=== PATIENT | male | born 1970 | race Two or more races ===

== ENCOUNTER 2025-01-25 13:13 | Inpatient (IN) | payer MEDICAID ==
[~2025-01-25] VITALS: Ht 167.6 cm; Wt 112.0 kg
[~2025-01-25 13:13] MED LIST: ACET-6 PO; ALBUAER3 IN; ASCO500T11 PO; ASPI1TAB20 PO; ATOR20TA50 PO; CICL8SOL21 TOP; CLOP75TA70 PO; CLOT1CRE7 TOP; DOCU-94 PO; EMPA1TAB PO; FAMO-12 PO; FENO145T27 PO; FERR324T PO; FLUT50SP NAS; GAB100C PO; GEMF-66 PO; INSU1INJ27; ISO20T PO; KETO2CRE4 TOP; LISI20TA56 PO; MET25T PO; METF750T54 PO; METR0.7517 TOP; MIN25T PO; NITR0.4S29 SL; ONDA-155 PO; PERCOT PO; POLY33505 PO; PROB1CAP PO; TRAZ-228 PO; URSO300C2 PO
--- NOTE | 2025-01-25 13:31 | ED.PDOC ---
HPI Comments HPI: Poor Historian. 54-year-old male brought in by ambulance from home for evaluation of midsternal chest pressure tightness radiating to the left shoulder has been there for a week intermittent with the associated shortness of breath. Patient called 911 today and took his own full-dose aspirin as well. Per EMS pain scale was 8/10 vital signs were stable. Patient had some nausea with the symptoms. Past Medical History: Obesity, hypertension, hyperlipidemia, diabetes, anxiety, depression Past Surgical History: CABG REVIEW OF SYSTEMS: CONSTITUTIONAL: Denies acute: fever, diaphoresis, chills, HEAD: Denies acute: headache, photophobia Eyes: Denies acute: Double vision, vision loss, eye pain, eye discharge. EARS: Denies acute: tinnitus, hearing loss, ear discharge, ear pain, THROAT: Denies acute: sore throat, swelling, difficulty swallowing , pain with swallowing, change in voice. NECK: Denies acute: neck pain, neck swelling, stiff neck. HEART: Denies acute : palpitations, LUNGS: Denies acute: wheezing, cough, hemoptysis ABDOMEN: Denies acute: abdominal pain, Vomiting, diarrhea, melena , hematemesis, hematochezia SKIN: Denies acute: rash, redness, lesions, itchiness. EXTREMITIES: Denies acute: calf pain, numbness, tingling, weakness, denies pain in extremity. Denies acute: Low back pain. Neuro: Denies acute: focal neurological deficit, motor or sensory focal neurological deficit, tremors, seizure like activity, confusion, dizziness, change in mental status, loss of bowel or bladder function, cauda equina like symptoms. : Denies acute: dysuria, hematuria, flank pain, increase in urinary frequency. PSYCH: Denies acute: hallucination, suicidal ideation, homicidal ideation. PHYSICAL EXAM: General: ----[id number]----acute distress, awake and alert. Head: normocephalic, atraumatic. Neck: supple, trachea is midline, no swelling. Throat: Normal phonation. Eyes:, no erythema, no purulent discharge, no proptosis, no icterus. Heart: regular rate, regular rhythm, no significant murmur appreciated. Lungs: no apparent respiratory distress, Able to speak in full sentences. No wheezing, no rhonchi, no crackles. No stridors Clear to auscultation bilaterally. Abdomen: non tender to palpation, non distended, soft, no guarding, no rebound, + bowel sounds. Neuro: Awake, Alert, oriented to name, self, situation, follows commands GCS=15. Speech is normal. Skin: no petechia, no purpura, no cyanosis, non-pale, not jaundice. Lower extremities: --no - Pitting edema no deformity, no focal swelling, no calf TTP. Makes eye contact. moves all four extremities. Face: no apparent facial droop. ED COURSE: DISCLAIMER: This medical document was created using an electronic medical record system with voice recognition software and computerized dictation system. Although this document has been carefully reviewed, there might still be some phonetic and typographical errors. Occasional wrong-word or "sound-alike" substitutions may have occurred due to the inherent limitations of voice recognition software. These areas are purely typographical due to imperfections of the software programs and do not reflect any compromise in the patient's medical care. Please read the chart carefully and recognize, using context, where these substitutions have occurred. Chief Complaint: Chest Pain Time Seen by MD: 13:19 Primary Care Provider: KELSI Reviewed Notes: Allergies Allergies: Coded Allergies: Shrimp Flavor Agent (non-screening) (Verified Allergy, Mild, 11/01/24) "Itchy" Peanut-containing Drug Products (Verified Allergy, Unknown, 11/01/24) "walnuts" Home Meds Reported Medications Ranolazine (Ranolazine ER) 500 Mg Tab, 500 MG PO BID, TAB 01/26/25 Roflumilast (Antiseborrheic) (Zoryve) 0.3 % Mis, 0.3 % EX DAILY, MISC 01/25/25 Escitalopram Oxalate (ESCITALOPRAM OXALATE) 10 Mg Tab, PO 01/25/25 Ascorbic Acid (Gnp Vitamin C W/Amelia Hips) 500 Mg Tab, 1 TAB PO DAILY 01/25/25 Minoxidil (Loniten) 2.5 Mg Tb, 0.5 TAB PO DAILY, TAB 10/31/24 Albuterol Sulfate (VENTOLIN MDI) 90 Mcg Ih, 2 PUFF IN Q6HPRN PRN for wheezing, INH 10/31/24 Aspirin (Aspir-81) 81 Mg Tab, 81 MG PO DAILY, TAB 10/31/24 Lisinopril (Lisinopril) 20 Mg Tab, 10 MG PO DAILY, TAB 10/31/24 Ondansetron HCl (Ondansetron) 4 Mg Tab, 4 MG PO Q8HPRN PRN for NAUSEA / VOMITING, TAB 10/31/24 Oxycodone W/ Acetaminophen (Percocet 5/325MG) 1 Tab Tb, 1 TAB PO PRN for PAIN SCALE 7 THRU 10, TAB 10/31/24 Bacillus Coagulans (Bacid) 1 Cap Cap, 1 CAP PO DAILY, CAP 10/31/24 Ferrous Gluconate (Ferrous Gluconate) 324 Mg Tab, 325 MG PO DAILY, TAB 10/31/24 Metoprolol Tartrate (Lopressor) 25 Mg Tb, 1 TAB PO BID 10/31/24 Clotrimazole (Topical) (Clotrimazole Anti-Fungal) 1 % Cre, 1 APPLIC TOP BID 10/31/24 Ketoconazole (Ketoconazole) 2 % Cre, 1 APPLIC TOP DAILY 10/31/24 Ciclopirox (Ciclopirox Nail Lacquer) 8 % Mickie, TOP Apply 1 application topically every evening at bedtime. Apply on nail and surrounding skin. After 7 days remove with alcohol and continue cycle. 10/31/24 Isosorbide Mononitrate (ISMO TABLET) 20 Mg Tb, 1 TAB PO BID 10/31/24 Gemfibrozil (Gemfibrozil) 600 Mg Tab, 1 TAB PO BID 10/31/24 Ursodiol (Ursodiol) 300 Mg Cap, 1 CAP PO BID 10/31/24 Famotidine (Famotidine) 20 Mg Tab, 1 TAB PO BID 10/31/24 Metronidazole (Topical) (Metronidazole) 0.75 % Gel, 1 APPLIC TOP BID 10/31/24 Acetaminophen (Acetaminophen Extra Stren) 500 Mg Tab, 1 TAB PO Q6HPRN PRN for PAIN1-3 10/31/24 Metformin Hydrochloride (Metformin Hcl Er) 750 Mg Tab, 1 TAB PO TID 10/31/24 Empagliflozin (Jardiance) 10 Mg Tab, 1 TAB PO DAILY 10/31/24 Nitroglycerin (NTROSTAT SUBLINGUAL) 0.4 Mg Sl, 0.4 MG SL PRN PRN for FOR CHEST PAIN, TAB *MAY REPEAT EVERY 5 MINUTES X 3 TOTAL IF NO RELIEF, INITIATE ANALGESIC THERAPY. NOTIFY PHYSICIAN *Do not crush. 10/31/24 Fluticasone Propionate (Nasal) (Fluticasone Propionate) 50 Mcg/Act Spr, SPRAY PORSHA 10/31/24 Fenofibrate (FENOFIBRATE) 145 Mg Tab, 1 TAB PO DAILY 10/31/24 Clopidogrel Bisulfate (CLOPIDOGREL) 75 Mg Tab, 1 TAB PO DAILY 10/31/24 Atorvastatin Calcium (ATORVASTATIN CALCIUM) 20 Mg Tab, 1 TAB PO DAILY 10/31/24 Gabapentin (Gabapentin) 100 Mg Cap, 1 CAP PO TID 10/31/24 Insulin Aspart Protamine & Asp (Insulin Aspart Protamine/ (70-30) 100 Unit/ml) 1 Inj Inj 36 UNITS SC IN THE MORNING AND 15 UNITS SC AT NIGHT. 10/31/24 Past Medical History PAST MEDICAL HISTORY: DM, HTN Family History Family History: Reviewed,noncontributory to illness, Unknown Social History Smoker: Non-Smoker Alcohol: Denies ETOH Use Drugs: Denies Drug Use Lives In: Home Was a procedure done? Was a procedure done?: No CP Differential Dx Differential Diagnosis: N/A Differential Diagnosis: Other (Ddx include but not limitied to gastritis, musculoskeletal pain, radiculopathy, atypical chest pain, dissection, aneurysm, ACS, unstable angina, hiatal hernia, GERD, anxiety, costochondritis, PE, pneumothroax, neoplasm, cardiac ischemia, drug abuse, anemia.) X-Ray, Labs, Meds, VS Vital Signs Date Time Temp Pulse Resp B/P (MAP) Pulse Ox O2 Delivery O2 Flow Rate FiO2 01/25/25 14:13 77 01/25/25 13:51 101/67 01/25/25 13:45 Room Air* 0 21 01/25/25 13:45 97.7 81 20 101/67 (78) 98 97.7 01/25/25 13:23 98.2 80 16 112/73 (86) 98 98.2 01/25/25 13:21 83 Lab Test 01/25/25 15:03 01/25/25 13:59 01/25/25 13:47 01/25/25 00:00 Range/Units Hemoglobin A1c 7.4 H <5.7 % A1C Troponin I High Sensitivity < 3 L < 3 L </=54 ng/L Thyroid Stimulating Hormone (TSH) 1.50 0.55-4.78 uIU/mL Free Thyroxine (T4) Calculated 0.99 0.89-1.76 ng/dL POC Glucose 180 H 70-106 mg/dl White Blood Count 4.5 4.4-10.8 10^3/uL Red Blood Count 4.75 4.5-5.90 10^6/uL Hemoglobin 14.9 13.5-17.5 g/dL Hematocrit 45.4 41.0-53.0 % Mean Corpuscular Volume 95.5 80.0-100.0 fL Mean Corpuscular Hemoglobin 31.4 28.0-32.0 pg Mean Corpuscular Hemoglobin Concent 32.8 32.0-36.0 g/dL Red Cell Distribution Width 14.9 H 11.8-14.3 % Platelet Count 232 140-450 10^3/uL Mean Platelet Volume 8.3 6.9-10.8 fL Neutrophils (%) (Auto) 49.5 37.0-80.0 % Lymphocytes (%) (Auto) 39.3 10.0-50.0 % Monocytes (%) (Auto) 7.5 0.0-12.0 % Eosinophils (%) (Auto) 2.7 0.0-7.0 % Basophils (%) (Auto) 1.0 0.0-2.0 % Neutrophils # (Auto) 2.2 1.6-8.6 10 ^3/uL Lymphocytes # (Auto) 1.8 0.4-5.4 10 ^3/uL Monocytes # (Auto) 0.3 0-1.3 10 ^3/uL Eosinophils # (Auto) 0.1 0-0.8 10 ^3/uL Basophils # (Auto) 0 0-0.2 10 ^3/uL Nucleated Red Blood Cells 0.1 % Sodium Level 139 136-145 mmol/L Potassium Level 4.3 3.5-5.1 mmol/L Chloride Level 105 98-107 mmol/L Carbon Dioxide Level 23 20-31 mmol/L Anion Gap 11 5-15 Blood Urea Nitrogen 25 H 9-23 mg/dL Creatinine 1.31 H 0.700-1.30 mg/dL Glomerular Filtration Rate Calc 64 >90 mL/min BUN/Creatinine Ratio 19.1 10.0-20.0 Serum Glucose 169 H 74-106 mg/dL Calcium Level 10.4 8.7-10.4 mg/dL Total Bilirubin 0.3 0.2-1.0 mg/dL Aspartate Amino Transferase (AST) 76 H 13-40 U/L Alanine Aminotransferase (ALT) 64 H 7-40 U/L Alkaline Phosphatase 43 L 46-116 U/L B-Type Natriuretic Peptide 8.62 0-100 pg/mL Total Protein 7.5 5.7-8.2 g/dL Albumin 4.8 3.2-4.8 g/dL Urine Color Light-yellow Yellow Urine Clarity Clear Clear Urine pH 5.5 5.0-9.0 Urine Specific Tate 1.024 1.001-1.035 Urine Protein Negative Negative Urine Ketones Negative Negative Urine Blood Negative Negative /uL Urine Nitrite Negative Negative Urine Bilirubin Negative Negative Urine Urobilinogen Normal Negative mg/dL Urine Leukocyte Esterase Negative Negative /uL Urine RBC 3 0 - 3 /hpf Urine Microscopic WBC < 1 0-3 /HPF Urine Squamous Epithelial Cells Few <5 /hpf Urine Bacteria None seen None Seen /hpf Urine Glucose 4+ H Normal mg/dL Urine Opiates Screen Neg NEGATIVE Urine Fentanyl Screen Neg NEGATIVE Urine Barbiturates Screen Neg NEGATIVE Urine Phencyclidine Screen Neg NEGATIVE Urine Amphetamines Screen Neg NEGATIVE Urine Benzodiazepines Screen Neg NEGATIVE Urine Cocaine Screen Neg NEGATIVE Urine Cannabinoids Screen Neg NEGATIVE [place] [address] Ph: [phone] DIAGNOSTIC IMAGING Diagnostic Imaging Report : [id number] Signed PATIENT: SILVANA MENDOZA ACCT: [id number] UNIT: [id number] : 1970 LOC: ER ROOM / BED: / AGE / SEX: 54 / M ADM STATUS: REG ER SERVICE 1323 ORDERING PHYSICIAN: FABY PAINTING DO PROCEDURE(s): CXRP - CHEST PORTABLE REASON: cp/sob ORDER NUMBER(s): [id number], ACCESSION NUMBER(s): [id number] CHEST RADIOGRAPH Indication: cp/sob Technique: Single frontal view of the chest was obtained COMPARISON: XY CHEST XRAY 1 VIEW on DOS: 11/02/24, XY CHEST PORTABLE on DOS: 10/31/24 FINDINGS: Lines and Tubes: Median sternotomy Lungs: Increased interstitial prominence Pleura: No effusion. No pneumothorax. Cardiomediastinal contours: Cardiomegaly Bones: Unremarkable IMPRESSION: Mild pulmonary vascular congestion or viral pneumonia. ATED BY: OSWALDO TYSON MD DICTATED DATE/TIME: 01/25/251417 SIGNED BY: OSWALDO TYSON MD SIGNED DATE/TIME: 01/25/251417 CC: Time of 1ST Reevaluation: 00:00 Reevaluation 1ST: N/A Patient Education/Counseling: Diagnosis, Treatment Family Education/Counseling: Other Comments MDM: patient presented with the above HPI.-cardiac-----workup was initiated. patient was found with the above mentioned diagnosis. the following medications were ordered: please refer to order lists of meds and tests obtained by myself Dr. Painting. Patient ED course and VS have been stabilized. Patient has been reassessed in the ED and remained in a stable condition. Pertinent incidental findings were discussed with the patient and/or family. Patient/family voices understanding and is agreeable with plan. Patient has been observed in the ED adequate length of time to insure improvement/stability. Escalation of care considered: Consideration of escalation to observation or admission Patient was given aspirin and nitroglycerin sublingually Patient was ADMITTED to the medicine team for further evaluation and treatment of their presentation. All the reports of any imaging studies that were ordered by myself were reviewed by myself. SEPSIS Sepsis Screen Physician Orders [employer] (01/25/25 ) Chest Portable (01/25/25 13:23) Electrocardigram (01/25/25 13:23) Electrocardigram (01/25/25 14:23) Electrocardigram (01/25/25 16:23) Vital Signs Date Time Temp Pulse Resp B/P (MAP) Pulse Ox O2 Delivery O2 Flow Rate FiO2 01/25/25 14:13 77 01/25/25 13:51 101/67 01/25/25 13:45 Room Air* 0 21 01/25/25 13:45 97.7 81 20 101/67 (78) 98 97.7 01/25/25 13:23 98.2 80 16 112/73 (86) 98 98.2 01/25/25 13:21 83 Laboratory Tests Test 01/25/25 13:47 White Blood Count 4.5 10^3/uL (4.4-10.8) Departure 1 Departure Time of Disposition: 13:31 Impression: Primary Impression: Chest pain Additional Impression: Dyspnea Disposition: ADMITTED INPATIENT Admit to: Tele Condition: Guarded Discharged With: Self Critical Care Note Critical Care Time?: No Heart Score Heart Score: Heart Score Response (Comments) Value History Moderate Suspicious 1 EKG Normal 0 Age 45-64 1 Risk Factors >3 or Hx ASHD 2 Troponin Normal limit 0 Total 4 I personally scribed for FABY PAINTING DO ([email or web address]) on 01/25/25 at 16:57. Electronically submitted by Tobin Ferrell ([email or web address]). I personally scribed for FABY PAINTING DO ([email or web address]) on 01/25/25 at 18:19. Electronically submitted by Nicole Hong ([email or web address]). FABY PAINTING DO Jan 25, 2025 13:31
[2025-01-25] MEDS: SODIUM CHLORIDE 0.9% 500 ML IV ONE (13:50)
[2025-01-25] MEDS: NITROGLYCERIN 0.4 MG SL TAB SL ONE (13:51)
[2025-01-25 14:16] LABS: Hematocrit 45.4 % (41.0-53.0); Hemoglobin 14.9 g/dL (13.5-17.5); Mean Corpuscular Hemoglobin 31.4 pg (28.0-32.0); Mean Corpuscular Volume 95.5 fL (80.0-100.0); Nucleated Red Blood Cells % 0.1 %
--- NOTE | 2025-01-25 14:21 | DVH ---
CHEST RADIOGRAPH Indication: cp/sob Technique: Single frontal view of the chest was obtained COMPARISON: XY CHEST XRAY 1 VIEW on DOS: 11/02/24, XY CHEST PORTABLE on DOS: 10/31/24 FINDINGS: Lines and Tubes: Median sternotomy Lungs: Increased interstitial prominence Pleura: No effusion. No pneumothorax. Cardiomediastinal contours: Cardiomegaly Bones: Unremarkable IMPRESSION: Mild pulmonary vascular congestion or viral pneumonia.
[2025-01-25 14:28] LABS: Albumin 4.8 g/dL (3.2-4.8); Anion Gap 11 (5-15); BUN/Creatinine Ratio 19.1 (10.0-20.0); Carbon Dioxide 23 mmol/L (20-31); Chloride 105 mmol/L (98-107); Potassium 4.3 mmol/L (3.5-5.1); Sodium 139 mmol/L (136-145); Total Protein 7.5 g/dL (5.7-8.2)
[2025-01-25 14:29] LABS: Alanine Aminotransferase 64 U/L (7-40); Alkaline Phosphatase 43 U/L (46-116); Bilirubin, Total 0.3 mg/dL (0.2-1.0); Blood Urea Nitrogen 25 mg/dL (9-23); Calcium 10.4 mg/dL (8.7-10.4); Glucose 169 mg/dL (74-106)
[2025-01-25] MEDS ORDERED: ASCO500T6 PO (15:56)
[2025-01-25] MEDS ORDERED: ESCI1TAB36 PO (15:56)
[2025-01-25 16:00] LABS: Urine Protein, UAD Negative (Negative)
[2025-01-25] MEDS ORDERED: DEXTROSE (50%) 50ML SYRG IV PRN (16:00)
[2025-01-25] MEDS ORDERED: MORPHINE SULFATE 4 MG/ML SYR/VIAL IV PRN (16:00)
[2025-01-25] MEDS ORDERED: NITROGLYCERIN 0.4 MG SL TAB SL PRN ×2 (16:00)
--- NOTE | 2025-01-25 16:14 | DVHHP2 ---
History of Present Illness Reason for Visit: Chest pain radiating to left shoulder and shortness of breath History of Present Illness Thomas Reza is a 54-year-old male with past medical history of hypertension, hyperlipidemia, diabetes, anxiety, obesity, depression, and CABG who presents to the ED with chest pain and tightness that radiates to his left shoulder with shortness of breath x 3 days. Patient reports that the pain is 9/10 stabbing like and intermittent in nature. He states that there are no triggering or alleviating factors. Patient reports that he was packing his belongings at the time and resides at a board and care. He also reports that he ambulates with a front wheel walker. Patient denies any recent sick contacts, recent trauma or injury, recent travels, recent ingestion of spoiled food, lightheadedness, dizziness, weakness, urinary symptoms, abdominal pain, nausea, vomiting, diarrhea, fever, or chills. Cardiovascular: HTN, hyperipidemia Psych: Anxiety, Depression Endocrine: Diabetes Past Medical History Obesity Past Surgical History: CABG Family History: None Smoke: No ALCOHOL: none Drugs: None Lives: Other Domestic Violence: Neg Review of Systems Respiratory: Shortness of breath Cardiovascular: Chest Pain Musculoskeletal: shoulder pain Allergies: Coded Allergies: Shrimp Flavor (Verified Allergy, Mild, 11/01/24) "Itchy" Peanut-containing Drug Products (Verified Allergy, Unknown, 11/01/24) "walnuts" Medications Current Medications Medications Dose Ordered Sig/Carlos Route Start Time Stop Time Status Last Admin Dose Admin Aspirin 81 mg DAILY PO 01/26/25 10:00 UNV Atorvastatin Calcium 40 mg HS PO 01/25/25 22:00 UNV Morphine Sulfate 2 mg Q30MP PRN IV 01/25/25 16:00 UNV Acetaminophen 650 mg Q6HP PRN PO 01/25/25 16:00 UNV Nitroglycerin 0.4 mg Q5MINP PRN SL 01/25/25 16:00 UNV Ondansetron HCl 4 mg Q4HP PRN IV 01/25/25 16:00 UNV Nitroglycerin 0.4 mg Q5MINP PRN SL 01/25/25 16:00 UNV Morphine Sulfate 2 mg Q30M PRN IV 01/25/25 16:00 UNV Diagnostic Test (Pha) 1 strip ACHS 01/25/25 17:00 UNV Insulin Human Regular ACHS SC 01/25/25 17:00 UNV Dextrose 50 ml UD PRN IV 01/25/25 16:00 UNV Ascorbic Acid 500 mg DAILY PO 01/26/25 10:00 UNV Clopidogrel Bisulfate 75 mg DAILY PO 01/26/25 10:00 UNV Famotidine 20 mg BID PO 01/25/25 22:00 UNV Gabapentin 100 mg TID PO 01/25/25 22:00 UNV Gemfibrozil 600 mg BID PO 01/25/25 22:00 UNV Isosorbide Mononitrate 20 mg BID PO 01/25/25 22:00 UNV Lisinopril 10 mg DAILY PO 01/26/25 10:00 UNV Metoprolol Tartrate 25 mg BID PO 01/25/25 22:00 UNV Minoxidil 1.25 mg DAILY PO 01/26/25 10:00 UNV Ursodiol 300 mg BID PO 01/25/25 22:00 UNV Patient Own Medication 1 cap DAILY PO 01/26/25 10:00 UNV Patient Own Medication 1 tab DAILY PO 01/26/25 10:00 UNV Patient Own Medication 325 mg DAILY PO 01/26/25 10:00 UNV Patient Own Medication 17 gm DAILY PO 01/26/25 10:00 UNV Patient Own Medication 50 mg HS PO 01/25/25 22:00 UNV Exam Vital Signs Vital Signs Date Time Temp Pulse Resp B/P (MAP) Pulse Ox O2 Delivery O2 Flow Rate FiO2 01/25/25 14:13 77 01/25/25 13:51 101/67 01/25/25 13:45 Room Air* 0 21 01/25/25 13:45 97.7 20 98 97.7 General Appearance: Alert, Oriented X3, Cooperative, No acute distress HEENT: Atraumatic, PERRLA, EOMI, Mucous membr. moist/pink Respiratory: Normal air movement Cardiovascular: Regular rate, Normal S1, Normal S2, No murmurs Abdominal: Normal bowel sounds, Soft Extremities: No clubbing, No cyanosis, Normal pulses Skin: No significant lesion Neuro: Normal speech, Strength at 5/5 X4 ext, Normal tone, Sensation intact Psych/Mental Status: Mental status NL, Mood NL Labs/Xrays Labs Test 01/25/25 15:03 01/25/25 13:59 01/25/25 13:47 01/25/25 00:00 Range/Units Troponin I High Sensitivity < 3 L </=54 ng/L POC Glucose 180 H 70-106 mg/dl White Blood Count 4.5 4.4-10.8 10^3/uL Red Blood Count 4.75 4.5-5.90 10^6/uL Hemoglobin 14.9 13.5-17.5 g/dL Hematocrit 45.4 41.0-53.0 % Mean Corpuscular Volume 95.5 80.0-100.0 fL Mean Corpuscular Hemoglobin 31.4 28.0-32.0 pg Mean Corpuscular Hemoglobin Concent 32.8 32.0-36.0 g/dL Red Cell Distribution Width 14.9 H 11.8-14.3 % Platelet Count 232 140-450 10^3/uL Mean Platelet Volume 8.3 6.9-10.8 fL Neutrophils (%) (Auto) 49.5 37.0-80.0 % Lymphocytes (%) (Auto) 39.3 10.0-50.0 % Monocytes (%) (Auto) 7.5 0.0-12.0 % Eosinophils (%) (Auto) 2.7 0.0-7.0 % Basophils (%) (Auto) 1.0 0.0-2.0 % Neutrophils # (Auto) 2.2 1.6-8.6 10 ^3/uL Lymphocytes # (Auto) 1.8 0.4-5.4 10 ^3/uL Monocytes # (Auto) 0.3 0-1.3 10 ^3/uL Eosinophils # (Auto) 0.1 0-0.8 10 ^3/uL Basophils # (Auto) 0 0-0.2 10 ^3/uL Nucleated Red Blood Cells 0.1 % Sodium Level 139 136-145 mmol/L Potassium Level 4.3 3.5-5.1 mmol/L Chloride Level 105 98-107 mmol/L Carbon Dioxide Level 23 20-31 mmol/L Anion Gap 11 5-15 Blood Urea Nitrogen 25 H 9-23 mg/dL Creatinine 1.31 H 0.700-1.30 mg/dL Glomerular Filtration Rate Calc 64 >90 mL/min BUN/Creatinine Ratio 19.1 10.0-20.0 Serum Glucose 169 H 74-106 mg/dL Calcium Level 10.4 8.7-10.4 mg/dL Total Bilirubin 0.3 0.2-1.0 mg/dL Aspartate Amino Transferase (AST) 76 H 13-40 U/L Alanine Aminotransferase (ALT) 64 H 7-40 U/L Alkaline Phosphatase 43 L 46-116 U/L B-Type Natriuretic Peptide 8.62 0-100 pg/mL Total Protein 7.5 5.7-8.2 g/dL Albumin 4.8 3.2-4.8 g/dL CHEST RADIOGRAPH Indication: cp/sob Technique: Single frontal view of the chest was obtained COMPARISON: XY CHEST XRAY 1 VIEW on DOS: 11/02/24, XY CHEST PORTABLE on DOS: 10/31/24 FINDINGS: Lines and Tubes: Median sternotomy Lungs: Increased interstitial prominence Pleura: No effusion. No pneumothorax. Cardiomediastinal contours: Cardiomegaly Bones: Unremarkable IMPRESSION: Mild pulmonary vascular congestion or viral pneumonia. SEPSIS Sepsis Screen Date sepsis recognized/suspect: Jan 25, 2025 Time Sepsis recognized/suspect: 1322 Recent Procedure: No On Antibiotic Therapy: No Respiratory Rate >20: No Heart Rate >90: No Temp<36 C (96.8 F) or >38.3 C: No SBP <90 or MAP <65 mmHG: No New Acute Mental Status Change: No Is the patient on CPAP, BIPAP,: No Physician Orders Assistant Business Manager (01/25/25 ) Chest Portable (01/25/25 13:23) Electrocardigram (01/25/25 13:23) Troponin-I Hs (01/25/25 16:23) Electrocardigram (01/25/25 14:23) Electrocardigram (01/25/25 16:23) Urinalysis (01/25/25 UNK) Admit (01/25/25 15:50) Code Status (01/25/25 15:50) Vital Signs .PER UNIT PROTOCOL (01/25/25 15:50) Assistant Business Manager (01/25/25 15:50) Cardiac Diet-2gna,Lofat,Lochol (01/25/25 Dinner) Aspirin Tablet (01/26/25 10:00) Atorvastatin (Lipitor) (01/25/25 22:00) Morphine Sulfate Injection (01/25/25 16:00) Acetaminophen Tablet (Tylenol Tablet) (01/25/25 16:00) Complete Blood Count (01/26/25 04:00) Basic Metabolic Panel (01/26/25 04:00) Magnesium (01/26/25 04:00) Lipid Panel (01/26/25 04:00) Echo 2d Mode Cardiac Dop (01/25/25 15:50) Nitroglycerin Sublingual (Ntrostat Subli (01/25/25 16:00) Ondansetron Hcl (Zofran) (01/25/25 16:00) Electrocardigram (01/26/25 04:00) Cardiac Rehabilitation - Outpa (01/25/25 ) Nitroglycerin Sublingual (Ntrostat Subli (01/25/25 16:00) Morphine Sulfate Injection (01/25/25 16:00) Stat Ekg For Chest Pain (01/25/25 15:50) Notify Md Of Changes From Base (01/25/25 15:50) Ancillary Services Manager Therapy For 24 Hours (01/25/25 15:50) Emergency Dysrhythmia Protocol (01/25/25 15:50) Rhythm Strips Once Every Shift (01/25/25 15:50) Oxygen By Nasal Cannula (01/25/25 15:50) Glucose Blood (Accu-Chek Comfort Curve T (01/25/25 17:00) Insulin R (Human) (Insulin R) (01/25/25 17:00) Dextrose 50% Syringe (01/25/25 16:00) Hemoglobin A1c (01/25/25 15:50) Drug Screen (01/25/25 15:53) Free T4 (Free Thyroxine) (01/25/25 15:53) Thyroid Stimulating Hormone (01/25/25 15:53) Ascorbic Acid Tablet (Vitamin C Tablet) (01/26/25 10:00) Clopidogrel Bisulfate (Plavix) (01/26/25 10:00) Famotidine Tablet (Pepcid Tablet) (01/25/25 22:00) Gabapentin Capsule (Neurontin Capsule) (01/25/25 22:00) Gemfibrozil Tablet (Lopid Tablet) (01/25/25 22:00) Isosorbide Mononitrate Tablet (Ismo Tab (01/25/25 22:00) Lisinopril Tablet (Zestril Tablet) (01/26/25 10:00) Metoprolol Tartrate Tablet (Lopressor Ta (01/25/25 22:00) Minoxidil Tablet (Loniten Tablet) (01/26/25 10:00) Ursodiol (Actigall) (01/25/25 22:00) (Nf) Bacillus Coagulans (Bacid) (01/26/25 10:00) (Nf) Fenofibrate (01/26/25 10:00) (Nf) Ferrous Gluconate (01/26/25 10:00) (Nf) Polyethylene Glycol (Miralax) (01/26/25 10:00) (Nf) Trazodone Hcl (01/25/25 22:00) * Ocean Rescue Lieutenant Consult (01/25/25 ) Albuterol Medneb (Ventolin Medneb) (01/25/25 16:15) Ipratropium Medneb (Atrovent Medneb) (01/25/25 16:15) Vital Signs Date Time Temp Pulse Resp B/P (MAP) Pulse Ox O2 Delivery O2 Flow Rate FiO2 01/25/25 14:13 77 01/25/25 13:51 101/67 01/25/25 13:45 Room Air* 0 21 01/25/25 13:45 97.7 81 20 101/67 (78) 98 97.7 01/25/25 13:23 98.2 80 16 112/73 (86) 98 98.2 01/25/25 13:21 83 Laboratory Tests Test 01/25/25 13:47 White Blood Count 4.5 10^3/uL (4.4-10.8) Medications Medications Dose Ordered Sig/Carlos Route Start Time Stop Time Status Last Admin Dose Admin Sodium Chloride 500 ml @ 500 mls/hr Q1H ONCE IV 01/25/25 13:30 01/25/25 14:29 DC 01/25/25 13:50 500 MLS/HR Assessment/Plan Assessment/Plan Assessment Chest pain radiating to the left shoulder with shortness of breath Possible viral PNA Obesity RICKEY likely prerenal Diabetes type 2 History of hypertension History of hyperlipidemia History of anxiety History of depression History of CABG Plan Admit to tele Antiemetics Pain management Chest x-ray noted BNP NS 500 cc given in ED EKG Troponins noted negative x2 Hemoglobin A1c ISS and Accu-Cheks UA UDS Echo ordered Free T4 TSH Lipid panel Duo nebs Diet Home medications reconciled DVT prophylaxis-not indicated patient ambulating PUD prophylaxis-H2 blockers Discussed plan of care with patient and nurse Counseled patient on lifestyle modifications, diet, and exercise [id number] Preventive counseling healthy eating habits, physical activity, and regular checkups Patient from board and care Plan discussed with: Patient My Orders Orders - RINKU COBIAN Med DOUGH SHEETER Procedure Category Date Status Time Admit ADMIT 01/25/25 Transmitted 15:50 Code Status CODE 01/25/25 Transmitted 15:50 Vital Signs SUDEEP 01/25/25 In Process 15:50 Assistant Business Manager SUDEEP 01/25/25 In Process 15:50 Cardiac DIET 01/25/25 Transmitted Diet-2gna,Lofat,Lochol Dinner Aspirin Tablet PHA 01/26/25 Logged 10:00 Atorvastatin (Lipitor) PHA 01/25/25 Logged 22:00 Morphine Sulfate PHA 01/25/25 Logged Injection 16:00 Acetaminophen Tablet PHA 01/25/25 Logged (Tylenol Tablet) 16:00 Complete Blood Count LAB 01/26/25 Verified 04:00 Basic Metabolic Panel LAB 01/26/25 Verified 04:00 Magnesium LAB 01/26/25 Verified 04:00 Lipid Panel LAB 01/26/25 Verified 04:00 Echo 2d Mode Cardiac US 01/25/25 Logged DOP 15:50 Nitroglycerin PHA 01/25/25 Logged Sublingual (Ntrostat 16:00 Ondansetron Hcl PHA 01/25/25 Logged (Zofran) 16:00 Electrocardigram EKG 01/26/25 Logged 04:00 Cardiac SUDEEP 01/25/25 In Process Rehabilitation - Outpa Nitroglycerin PHA 01/25/25 Logged Sublingual (Ntrostat 16:00 Morphine Sulfate PHA 01/25/25 Logged Injection 16:00 Stat Ekg For Chest SUDEEP 01/25/25 In Process Pain 15:50 Notify Of Changes SUDEEP 01/25/25 In Process From Base 15:50 Ancillary Services Manager Therapy For SUDEEP 01/25/25 In Process 24 Hours 15:50 Emergency Dysrhythmia SUDEEP 01/25/25 In Process Protocol 15:50 Rhythm Strips Once SUDEEP 01/25/25 In Process Every Shift 15:50 Oxygen By Nasal RT 01/25/25 Transmitted Cannula 15:50 Glucose Blood PHA 01/25/25 Logged (Accu-Chek Comfort 17:00 Insulin R (Human) PHA 01/25/25 Logged (Insulin R) 17:00 Dextrose 50% Syringe PHA 01/25/25 Logged 16:00 Hemoglobin A1c LAB 01/25/25 Logged 15:50 Drug Screen LAB 01/25/25 In Process 15:53 Free T4 (Free LAB 01/25/25 Logged Thyroxine) 15:53 Thyroid Stimulating LAB 01/25/25 Logged Hormone 15:53 Ascorbic Acid Tablet PHA 01/26/25 Logged (Vitamin C Tablet) 10:00 Clopidogrel Bisulfate PHA 01/26/25 Logged (Plavix) 10:00 Famotidine Tablet PHA 01/25/25 Logged (Pepcid Tablet) 22:00 Gabapentin Capsule PHA 01/25/25 Logged (Neurontin Capsule) 22:00 Gemfibrozil Tablet PHA 01/25/25 Logged (Lopid Tablet) 22:00 Isosorbide PHA 01/25/25 Logged Mononitrate Tablet 22:00 Lisinopril Tablet PHA 01/26/25 Logged (Zestril Tablet) 10:00 Metoprolol Tartrate PHA 01/25/25 Logged Tablet (Lopressor Ta 22:00 Minoxidil Tablet PHA 01/26/25 Logged (Loniten Tablet) 10:00 Ursodiol (Actigall) PHA 01/25/25 Logged 22:00 (Nf) Bacillus PHA 01/26/25 Logged Coagulans (Bacid) 10:00 (Nf) Fenofibrate PHA 01/26/25 Logged 10:00 (Nf) Ferrous Gluconate PHA 01/26/25 Logged 10:00 (Nf) Polyethylene PHA 01/26/25 Logged Glycol (Miralax) 10:00 (Nf) Trazodone Hcl PHA 01/25/25 Logged 22:00 * Ocean Rescue Lieutenant CONS 01/25/25 Transmitted Consult Albuterol Medneb PHA 01/25/25 Transmitted (Ventolin Medneb) 16:15 Ipratropium Medneb PHA 01/25/25 Transmitted (Atrovent Medneb) 16:15 Date of Service: Jan 25, 2025 Billing Provider: RINKU COBIAN DOUGH SHEETER Common Visit Codes: 03459-[id number] INP/OBS CARE (HIGH) RINKU COBIAN [facility] Jan 25, 2025 16:14
[2025-01-25 16:22] VITALS: BP 114/73; PULSE 68; RESP 18; TEMP 98.4; O2SAT 98
[2025-01-25 16:34] LABS: Amphetamine Screen, Urine Neg (NEGATIVE); Barbiturate Scree,Urine Neg (NEGATIVE); Benzodiazephine Screen, Urine Neg (NEGATIVE); Cannabinoid Screen, Urine Neg (NEGATIVE); Cocaine Screen, Urine Neg (NEGATIVE); Opiate Scree,Urine Neg (NEGATIVE); Phencyclidine Screen, Urine Neg (NEGATIVE)
[2025-01-25] MEDS: ACCU-CHEK COMFORT CURVE STRIP VI SCH (17:28)
[2025-01-25] MEDS: InsuLIN REG 1unit/0.01ml Soln (100units/ml) SC SCH (17:39)
[2025-01-25] MEDS: ONDANSETRON HCL 4 MG/2 ML VIAL IV PRN (17:41)
--- NOTE | 2025-01-25 18:13 | ECG ---
[facility] Test Date: 2025-01-25 Test Time: 14:13:56 Pat Name: SILVANA MENDOZA Department: ED Room: [address] [place] [address] Gender: M Incident Handler: estefania : 1970 Requested By: FABY PAINTING Order Number: [id number] Reading MD: Marshall Hoffmann Measurements Intervals [place] Rate: 77 P: 41 MD: 206 QRS: -39 QRSD: 96 T: 52 QT: 381 QTc: 432 Interpretive Statements Sinus rhythm Borderline prolonged MD interval Left axis deviation Low voltage, precordial leads Consider anterior infarct Electronically Signed On 01-30-2025 15:46:59 PDT by Marshall Hoffmann Please click the below link to view image of tracing.
--- NOTE | 2025-01-25 18:14 | ECG ---
[facility] Test Date: 2025-01-25 Test Time: 16:34:07 Pat Name: SILVANA MENDOZA Department: ED Room: [address] [place] [address] Gender: M Accountant Helper: estefania : 1970 Requested By: FABY PAINTING Order Number: [id number] Reading MD: Marshall Hoffmann Measurements Intervals [place] Rate: 67 P: 55 RI: 199 QRS: 26 QRSD: 105 T: 50 QT: 403 QTc: 426 Interpretive Statements Sinus rhythm Low voltage, precordial leads Probable anteroseptal infarct, old Electronically Signed On 01-30-2025 15:47:23 PDT by Marshall Hoffmann Please click the below link to view image of tracing.
[2025-01-25] MEDS ORDERED: PATIENTS OWN MEDICATION (Trazodone Hcl 50 MG) PO SCH (22:00)
[2025-01-25] MEDS: METOPROLOL TARTRATE 25 MG TAB PO SCH (22:00)
[2025-01-25] MEDS: ATORVASTATIN 20 MG TAB PO SCH (22:05)
[2025-01-25] MEDS: GEMFIBROZIL 600 MG TAB PO SCH (22:05)
[2025-01-25] MEDS: ISOSORBIDE MONONITRATE 20 MG TAB PO SCH (22:06)
[2025-01-25] MEDS: FAMOTIDINE 20 MG TAB PO SCH (22:06)
[2025-01-25] MEDS: GABAPENTIN 100 MG CAP PO SCH (22:06)
[2025-01-25 22:25] VITALS: BP 128/78; PULSE 76; RESP 18; TEMP 98.1; O2SAT 95
[2025-01-25 22:30] VITALS: PULSE 77
[2025-01-25] MEDS ORDERED: [UNRECOGNIZED DRUG - OTHER] EX (23:43)
[2025-01-25] MEDS: URSODIOL 300 MG CAP PO SCH (23:43)
[2025-01-26] VITALS (10 sets, daily range): BP systolic 95–120; BP diastolic 62–89; PULSE 60–106; RESP 17–20; TEMP 97.3–98.6; O2SAT 94–97
--- NOTE | 2025-01-26 01:53 | DVHSR ---
APPROVED REPORT EXAM: Two-dimensional and M-mode echocardiogram with Doppler and color Doppler. Blood Pressure: 114/73 mmHg INDICATION Chest Pain DIMENSIONS LVDd4.3 (3.8-5.7cm)LA (2D)3.5 (1.9-4.0cm)Aortic Root4.2 (2.0-3.7cm) LVDs2.9 (2.5-4.0cm)LA (MM) (1.9-4.0cm)Aortic Cusp Exc2.1 (1.5-2.0cm) EF (%) 62.3 (55-70%)Rt. Atrium3.5 (1.9-4.0cm)Asc. Aorta cm IVSd1.0 (0.7-1.1cm)RV (D)3.9 (1.8-2.4cm) PWd1.1 (0.7-1.1cm) Mitral Valve MitralMitral Stenosis E wave0.85m/sMV Mean GR.mmHg A wave0.98m/sMV Peak GR.20mmHg E/A ratio0.92D MVAcm2 DECEL [id number] 1/2 [place] Aortic Valve Aortic ValveAortic Stenosis V11.01m/Mayte Mean GR.3mmHg V21.29m/Mayte Peak GR.7mmHg Pulmonic Valve V20.87m/s Tricuspid Valve TR Velocity2.07m/s [id number] Conclusion NORMAL LV EF AND IS 65% NORMAL VALVES NORMAL RV FUNCTION NO EFFUSION
[2025-01-26] MEDS: ACETAMINOPHEN 325 MG TAB PO PRN (02:38)
[2025-01-26] MEDS ORDERED: RANO500T3 PO (04:49)
[2025-01-26 07:03] LABS: Hematocrit 41.3 % (41.0-53.0); Hemoglobin 14.0 g/dL (13.5-17.5); Mean Corpuscular Hemoglobin 31.5 pg (28.0-32.0); Mean Corpuscular Volume 92.7 fL (80.0-100.0); Nucleated Red Blood Cells % 0.2 %
[2025-01-26 07:12] LABS: Anion Gap 9 (5-15); Calcium 9.9 mg/dL (8.7-10.4); Carbon Dioxide 24 mmol/L (20-31); Chloride 105 mmol/L (98-107); Potassium 4.1 mmol/L (3.5-5.1); Sodium 138 mmol/L (136-145)
[2025-01-26 07:18] LABS: BUN/Creatinine Ratio 18.7 (10.0-20.0); Magnesium 2.1 mg/dL (1.6-2.6)
[2025-01-26 07:19] LABS: Blood Urea Nitrogen 23 mg/dL (9-23); Cholesterol 169 mg/dL (< 200); Glucose 126 mg/dL (74-106); Triglycerides 464 mg/dL (< 150)
[2025-01-26 07:21] LABS: HDL Cholesterol 21 mg/dL (40-59)
[2025-01-26] MEDS: BACILLUS COAGULANS PO SCH (10:00)
[2025-01-26] MEDS: MINOXIDIL 2.5 MG TAB PO SCH (10:00)
[2025-01-26] MEDS ORDERED: POLYETHYLENE GLYCOL 17 GM PO SCH (10:00)
[2025-01-26] MEDS: FERROUS GLUCONATE 325 MG PO SCH (10:00)
[2025-01-26] MEDS: POLYETHYLENE GLYCOL 17 GM PWDR PO SCH (10:02)
[2025-01-26] MEDS: LISINOPRIL 20 MG TAB PO SCH (10:02)
[2025-01-26] MEDS: CLOPIDOGREL BISULFATE 75 MG TAB PO SCH (10:03)
[2025-01-26] MEDS: ASCORBIC ACID 500 MG TAB PO SCH (10:04)
[2025-01-26] MEDS: MORPHINE SULFATE INJ 2 MG/ml SYRG IV PRN (11:15)
--- NOTE | 2025-01-26 15:44 | DVHINCON2 ---
Date Seen: Jan 26, 2025 Referring Physician MD Kristal Reason for Consultation Chest pain History of Present Illness This is a 54-year-old man who presented to the emergency room via EMS with a chief complaint of chest pain x1 week. Describes his chest pain as substernal, pressure-like, radiating to the left upper extremity, intermittent, and associated with mild shortness of breath. He underwent multiple 12 lead el ectrocardiograms revealing a sinus rhythm with an associated left anterior fascicular block and first-degree atrioventricular block. Serial troponin levels are negative. Reports undergoing recent triple-vessel coronary artery bypass graft at [facility] on 04/2024. Follows up in the outpatient setting with Dr. Hoffmann with upcoming appointment on 02/02/2025 statin g he is going to be scheduled for potential coronary angiogram and lower extremity angiogram. Other significant medical history includes hypertension, dyslipidemia, type 2 diabetes mellitus, pancreatitis, and morbid obesity. Past Medical History Past medical history reviewed. No other significant than mentioned above. Past Surgical History Triple-vessel CABG, 04/2024 Tonsillectomy Family History: Patient reports no known family medical history. Family History Family history reviewed. Social History Denies the use of illicit drugs, alcohol, or tobacco use. Allergies: Coded Allergies: Shrimp Flavor Agent (non-screening) (Verified Allergy, Mild, 11/01/24) "Itchy" Peanut-containing Drug Products (Verified Allergy, Unknown, 11/01/24) "walnuts" Home Meds Reported Medications Ranolazine (Ranolazine ER) 500 Mg Tab, 500 MG PO BID, TAB 01/26/25 Roflumilast (Antiseborrheic) (Zoryve) 0.3 % Mis, 0.3 % EX DAILY, MISC 01/25/25 Escitalopram Oxalate (ESCITALOPRAM OXALATE) 10 Mg Tab, PO 01/25/25 Ascorbic Acid (Gnp Vitamin C W/Amelia Hips) 500 Mg Tab, 1 TAB PO DAILY 01/25/25 Minoxidil (Loniten) 2.5 Mg Tb, 0.5 TAB PO DAILY, TAB 10/31/24 Albuterol Sulfate (VENTOLIN MDI) 90 Mcg Ih, 2 PUFF IN Q6HPRN PRN for wheezing, INH 10/31/24 Aspirin (Aspir-81) 81 Mg Tab, 81 MG PO DAILY, TAB 10/31/24 Lisinopril (Lisinopril) 20 Mg Tab, 10 MG PO DAILY, TAB 10/31/24 Ondansetron HCl (Ondansetron) 4 Mg Tab, 4 MG PO Q8HPRN PRN for NAUSEA / VOMITING, TAB 10/31/24 Oxycodone W/ Acetaminophen (Percocet 5/325MG) 1 Tab Tb, 1 TAB PO PRN for PAIN SCALE 7 THRU 10, TAB 10/31/24 Bacillus Coagulans (Bacid) 1 Cap Cap, 1 CAP PO DAILY, CAP 10/31/24 Ferrous Gluconate (Ferrous Gluconate) 324 Mg Tab, 325 MG PO DAILY, TAB 10/31/24 Metoprolol Tartrate (Lopressor) 25 Mg Tb, 1 TAB PO BID 10/31/24 Clotrimazole (Topical) (Clotrimazole Anti-Fungal) 1 % Cre, 1 APPLIC TOP BID 10/31/24 Ketoconazole (Ketoconazole) 2 % Cre, 1 APPLIC TOP DAILY 10/31/24 Ciclopirox (Ciclopirox Nail Lacquer) 8 % Mickie, TOP Apply 1 application topically every evening at bedtime. Apply on nail and surrounding skin. After 7 days remove with alcohol and continue cycle. 10/31/24 Isosorbide Mononitrate (ISMO TABLET) 20 Mg Tb, 1 TAB PO BID 10/31/24 Gemfibrozil (Gemfibrozil) 600 Mg Tab, 1 TAB PO BID 10/31/24 Ursodiol (Ursodiol) 300 Mg Cap, 1 CAP PO BID 10/31/24 Famotidine (Famotidine) 20 Mg Tab, 1 TAB PO BID 10/31/24 Metronidazole (Topical) (Metronidazole) 0.75 % Gel, 1 APPLIC TOP BID 10/31/24 Acetaminophen (Acetaminophen Extra Stren) 500 Mg Tab, 1 TAB PO Q6HPRN PRN for PAIN1-3 10/31/24 Metformin Hydrochloride (Metformin Hcl Er) 750 Mg Tab, 1 TAB PO TID 10/31/24 Empagliflozin (Jardiance) 10 Mg Tab, 1 TAB PO DAILY 10/31/24 Nitroglycerin (NTROSTAT SUBLINGUAL) 0.4 Mg Sl, 0.4 MG SL PRN PRN for FOR CHEST PAIN, TAB *MAY REPEAT EVERY 5 MINUTES X 3 TOTAL IF NO RELIEF, INITIATE ANALGESIC THERAPY. NOTIFY PHYSICIAN *Do not crush. 10/31/24 Fluticasone Propionate (Nasal) (Fluticasone Propionate) 50 Mcg/Act Spr, SPRAY PORSHA 10/31/24 Fenofibrate (FENOFIBRATE) 145 Mg Tab, 1 TAB PO DAILY 10/31/24 Clopidogrel Bisulfate (CLOPIDOGREL) 75 Mg Tab, 1 TAB PO DAILY 10/31/24 Atorvastatin Calcium (ATORVASTATIN CALCIUM) 20 Mg Tab, 1 TAB PO DAILY 10/31/24 Gabapentin (Gabapentin) 100 Mg Cap, 1 CAP PO TID 10/31/24 Insulin Aspart Protamine & Asp (Insulin Aspart Protamine/ (70-30) 100 Unit/ml) 1 Inj Inj 36 UNITS SC IN THE MORNING AND 15 UNITS SC AT NIGHT. 10/31/24 Home Meds Home medications reviewed. Current Medications Current Medications Medications (Trade) Dose Ordered Sig/Carlos Route PRN Reason Start Time Stop Time Status Last Admin Aspirin 81 mg DAILY PO 01/26/25 10:00 01/26/25 10:03 Atorvastatin Calcium (Lipitor) 40 mg HS PO 01/25/25 22:00 01/25/25 22:05 Morphine Sulfate 2 mg Q30MP PRN IV FOR CHEST PAIN 01/25/25 16:00 Cancel Acetaminophen (Tylenol Tablet) 650 mg Q6HP PRN PO MILD PAIN (1-3 PAIN SCALE) 01/25/25 16:00 01/26/25 02:38 Nitroglycerin (Ntrostat Sublingual) 0.4 mg Q5MINP PRN SL FOR CHEST PAIN 01/25/25 16:00 Ondansetron HCl (Zofran) 4 mg Q4HP PRN IV NAUSEA / VOMITING 01/25/25 16:00 01/25/25 17:41 Nitroglycerin (Ntrostat Sublingual) 0.4 mg Q5MINP PRN SL FOR CHEST PAIN 01/25/25 16:00 UNV Morphine Sulfate 2 mg Q30M PRN IV FOR CHEST PAIN 01/25/25 16:00 01/26/25 11:15 Diagnostic Test (Pha) (Accu-Chek Comfort Curve T) 1 strip ACHS 01/25/25 17:00 01/26/25 11:04 Insulin Human Regular (InsuLIN R) ACHS SC 01/25/25 17:00 01/26/25 11:23 Dextrose 50 ml UD PRN IV Blood Sugar LESS THAN 60 01/25/25 16:00 Ascorbic Acid (Vitamin C Tablet) 500 mg DAILY PO 01/26/25 10:00 01/26/25 10:04 Clopidogrel Bisulfate (Plavix) 75 mg DAILY PO 01/26/25 10:00 01/26/25 10:03 Famotidine (Pepcid Tablet) 20 mg BID PO 01/25/25 22:00 01/26/25 10:02 Gabapentin (Neurontin Capsule) 100 mg TID PO 01/25/25 22:00 01/26/25 14:03 Gemfibrozil (Lopid Tablet) 600 mg BID PO 01/25/25 22:00 01/26/25 10:06 Isosorbide Mononitrate (Ismo Tablet) 20 mg BID PO 01/25/25 22:00 01/26/25 10:04 Lisinopril (Zestril Tablet) 10 mg DAILY PO 01/26/25 10:00 01/26/25 10:02 Metoprolol Tartrate (Lopressor Tablet) 25 mg BID PO 01/25/25 22:00 01/26/25 10:03 Minoxidil (Loniten Tablet) 1.25 mg DAILY PO 01/26/25 10:00 Ursodiol (Actigall) 300 mg BID PO 01/25/25 22:00 01/26/25 10:59 Patient Own Medication 1 cap DAILY PO 01/26/25 10:00 Patient Own Medication 1 tab DAILY PO 01/26/25 10:00 Patient Own Medication 325 mg DAILY PO 01/26/25 10:00 Patient Own Medication 17 gm DAILY PO 01/26/25 10:00 UNV Patient Own Medication 50 mg HS PO 01/25/25 22:00 UNV Albuterol (Ventolin Medneb) 2.5 mg Q4HPRN PRN NEB SHORTNESS OF BREATH 01/25/25 16:15 Ipratropium [place] (Atrovent Medneb) 0.5 mg Q4HPRN PRN NEB SHORTNESS OF BREATH 01/25/25 16:15 Trazodone HCl (Desyrel) 50 mg HS PO 01/25/25 22:00 01/25/25 22:06 Polyethylene Glycol (Miralax 17GM Powder) 17 gm DAILY PO 01/26/25 10:00 01/26/25 10:02 Review of Systems Constitutional: No symptom reported Ears, Nose, & Throat: No symptom reported Eyes: No symptom reported Neurological: No symptoms reported Pulmonary/Respiratory: No symptom reported Cardiovascular: Chest pain Gastrointestinal: No symptom reported Genitourinary: No symptom reported Musculoskeletal: No symptom reported Skin: No symptom reported Psychiatric: No symptom reported Endocrine: No symptom reported Hemotologic/Lymphatic: No symptom reported Vital Signs Vital Signs Date Time Temp Pulse Resp B/P (MAP) Pulse Ox O2 Delivery O2 Flow Rate FiO2 01/26/25 13:00 97.4 68 18 95/68 (77) 95 97.4 01/26/25 07:36 Room Air 0.0 01/26/25 07:36 21 Physical Exam General Appearance: Cooperative. Well developed. Morbidly obese. In no acute distress Head Exam: Normal inspection Neck Exam: Normal inspection. Non-tender. Normal alignment Pulmonary/Respiratory: Chest non-tender. Clear bilateral breath sounds Cardiovascular/Chest: Regular rate and rhythm. S1, S2. Sinus rhythm with a associated LAFB and first-degree AV block. No murmurs. No JVD. Peripheral Pulses: 2+ Radial (R). 2+ Radial (L). 2+ Pedal (R). 2+ Pedal (L) Abdominal Exam: Normal bowel sounds. Soft. Nontender. No hepatospenomegaly. No masses Ankle Exam: Negative ankle edema Lower extremities: Negative lower extremity edema Neuro/Mental Status: A&O x4. Coherent Thoughts/Psych: Normal thought pattern. Appropriate mood and affect. Good judgement and insight Appearance: In no acute distress Skin Exam: Normal inspection. Normal color. Warm. Dry Labs/Diagnostic Data Labs Test 01/26/25 11:03 01/26/25 05:20 01/25/25 17:20 01/25/25 15:03 Range/Units POC Glucose 201 H 70-106 mg/dl White Blood Count 4.5 4.4-10.8 10^3/uL Red Blood Count 4.46 L 4.5-5.90 10^6/uL Hemoglobin 14.0 13.5-17.5 g/dL Hematocrit 41.3 41.0-53.0 % Mean Corpuscular Volume 92.7 80.0-100.0 fL Mean Corpuscular Hemoglobin 31.5 28.0-32.0 pg Mean Corpuscular Hemoglobin Concent 33.9 32.0-36.0 g/dL Red Cell Distribution Width 14.6 H 11.8-14.3 % Platelet Count 217 140-450 10^3/uL Mean Platelet Volume 8.5 6.9-10.8 fL Neutrophils (%) (Auto) 36.6 L 37.0-80.0 % Lymphocytes (%) (Auto) 50.4 H 10.0-50.0 % Monocytes (%) (Auto) 8.4 0.0-12.0 % Eosinophils (%) (Auto) 3.9 0.0-7.0 % Basophils (%) (Auto) 0.7 0.0-2.0 % Neutrophils # (Auto) 1.7 1.6-8.6 10 ^3/uL Lymphocytes # (Auto) 2.3 0.4-5.4 10 ^3/uL Monocytes # (Auto) 0.4 0-1.3 10 ^3/uL Eosinophils # (Auto) 0.2 0-0.8 10 ^3/uL Basophils # (Auto) 0 0-0.2 10 ^3/uL Nucleated Red Blood Cells 0.2 % Sodium Level 138 136-145 mmol/L Potassium Level 4.1 3.5-5.1 mmol/L Chloride Level 105 98-107 mmol/L Carbon Dioxide Level 24 20-31 mmol/L Anion Gap 9 5-15 Blood Urea Nitrogen 23 9-23 mg/dL Creatinine 1.23 0.700-1.30 mg/dL Glomerular Filtration Rate Calc 69 >90 mL/min BUN/Creatinine Ratio 18.7 10.0-20.0 Serum Glucose 126 H 74-106 mg/dL Calcium Level 9.9 8.7-10.4 mg/dL Magnesium Level 2.1 1.6-2.6 mg/dL Triglycerides Level 464 H < 150 mg/dL Cholesterol Level 169 < 200 mg/dL LDL Cholesterol < 100 mg/dL HDL Cholesterol 21 L 40-59 mg/dL Troponin I High Sensitivity < 3 L </=54 ng/L Hemoglobin A1c 7.4 H <5.7 % A1C Thyroid Stimulating Hormone (TSH) 1.50 0.55-4.78 uIU/mL Free Thyroxine (T4) Calculated 0.99 0.89-1.76 ng/dL Test 01/25/25 13:47 01/25/25 00:00 Range/Units Total Bilirubin 0.3 0.2-1.0 mg/dL Aspartate Amino Transferase (AST) 76 H 13-40 U/L Alanine Aminotransferase (ALT) 64 H 7-40 U/L Alkaline Phosphatase 43 L 46-116 U/L B-Type Natriuretic Peptide 8.62 0-100 pg/mL Total Protein 7.5 5.7-8.2 g/dL Albumin 4.8 3.2-4.8 g/dL Urine Color Light-yellow Yellow Urine Clarity Clear Clear Urine pH 5.5 5.0-9.0 Urine Specific D[place] 1.024 1.001-1.035 Urine Protein Negative Negative Urine Ketones Negative Negative Urine Blood Negative Negative /uL Urine Nitrite Negative Negative Urine Bilirubin Negative Negative Urine Urobilinogen Normal Negative mg/dL Urine Leukocyte Esterase Negative Negative /uL Urine RBC 3 0 - 3 /hpf Urine Microscopic WBC < 1 0-3 /HPF Urine Squamous Epithelial Cells Few <5 /hpf Urine Bacteria None seen None Seen /hpf Urine Glucose 4+ H Normal mg/dL Urine Opiates Screen Neg NEGATIVE Urine Fentanyl Screen Neg NEGATIVE Urine Barbiturates Screen Neg NEGATIVE Urine Phencyclidine Screen Neg NEGATIVE Urine Amphetamines Screen Neg NEGATIVE Urine Benzodiazepines Screen Neg NEGATIVE Urine Cocaine Screen Neg NEGATIVE Urine Cannabinoids Screen Neg NEGATIVE Assessment Chest pain rule out progressive coronary artery disease Severe coronary artery disease status post triple-vessel CABG (on Plavix and aspirin) Hypertension Dyslipidemia Type 2 diabetes mellitus Morbid obesity Plan/Recommendation (Dr. Flores) Patient seen and evaluated by Dr. Flores at bedside. The patient underwent a recent Cardiolite stress test normal rest and stress radionuclide test myocardial perfusion scan on 11/02/2024. He also underwent a transthoracic echocardiogram revealing a normal LVEF at 65% with normal valves and normal RV function. Multiple 12 lead electrocardiograms did not reveal ST-T segment changes. Patient is to follow-up as outpatient with Dr. Hoffmann on 02/02/2025 for further outpatient workup. There is no further inpatient cardiac workup indicated at this time. We will sign off at this time. Thank you for allowing us to participate in this patient's care. This medical document was created using an electronic medical record system with voice recognition software and computerized dictation system. Although this document has been carefully reviewed, there might still be some phonetic and typographical errors. Occasional wrong-word or ``sound-alike substitutions may have occurred due to the inherent limitations of voice recognition software. These areas are purely typographical due to imperfections of the software programs and do not reflect any compromise in the patient's medical care. Please read the chart carefully and recognize, using context, where these substitutions have occurred. Plan discussed with: Patient, Other NYHA Physical activity limitations: NA Date of Service: Jan 26, 2025 Billing Provider: ROMULO WEEKS Cardiology Common Codes: [id number] INP/OBS CARE (High) ROMULO WEEKS Jan 26, 2025 15:44
[2025-01-26] MEDS: diphenhdrAMINE HCL 50 MG/1 ML VL IV ONE (16:27)
[2025-01-26] MEDS: methylPREDNISolone SOD SUCC 40 MG/ML VL IV ONE (16:27)
--- NOTE | 2025-01-26 23:47 | DVHINCON2 ---
Date Seen: Jan 26, 2025 Referring Physician MD Kristal Reason for Consultation Chest pain History of Present Illness This is a 54-year-old male with a past medical history of hypertension, dyslipidemia, type 2 diabetes mellitus, pancreatitis, and morbid obesity who presented to the ED via EMS with a complaint of chest pain x1 week. Patient describes his chest pain as substernal, pressure-like, radiating to the left upper extremity, intermittent, and associated with mild shortness of breath. He underwent multiple 12 lead electrocardiograms revealing a sinus rhythm with an associated left anterior fascicular block and first-degree atrioventricular block. Serial troponin levels are negative. Patient reports undergoing recent triple-vessel coronary artery bypass graft at [facility] in [id number]. Patient currently follows up in the outpatient setting with Dr. Hoffmann with an upcoming appointment on 02/02/2025 stating he is going to be scheduled for potential coronary angiogram and lower extremity angiogram. Chest x-ray showed mild pulmonary vascular congestion or viral pneumonia. Patient was admitted to the hospital. I am asked to consult on this patient. Past Medical History Past medical history reviewed. No other significant than mentioned above. Past Surgical History Triple-vessel CABG, 04/2024 Tonsillectomy Family History: Patient reports no known family medical history. Allergies: Coded Allergies: Shrimp Flavor Agent (non-screening) (Verified Allergy, Mild, 11/01/24) "Itchy" Peanut-containing Drug Products (Verified Allergy, Unknown, 11/01/24) "walnuts" Home Meds Reported Medications Ranolazine (Ranolazine ER) 500 Mg Tab, 500 MG PO BID, TAB 01/26/25 Roflumilast (Antiseborrheic) (Zoryve) 0.3 % Mis, 0.3 % EX DAILY, MISC 01/25/25 Escitalopram Oxalate (ESCITALOPRAM OXALATE) 10 Mg Tab, PO 01/25/25 Ascorbic Acid (Gnp Vitamin C W/Amelia Hips) 500 Mg Tab, 1 TAB PO DAILY 01/25/25 Minoxidil (Loniten) 2.5 Mg Tb, 0.5 TAB PO DAILY, TAB 10/31/24 Albuterol Sulfate (VENTOLIN MDI) 90 Mcg Ih, 2 PUFF IN Q6HPRN PRN for wheezing, INH 10/31/24 Aspirin (Aspir-81) 81 Mg Tab, 81 MG PO DAILY, TAB 10/31/24 Lisinopril (Lisinopril) 20 Mg Tab, 10 MG PO DAILY, TAB 10/31/24 Ondansetron HCl (Ondansetron) 4 Mg Tab, 4 MG PO Q8HPRN PRN for NAUSEA / VOMITING, TAB 10/31/24 Oxycodone W/ Acetaminophen (Percocet 5/325MG) 1 Tab Tb, 1 TAB PO PRN for PAIN SCALE 7 THRU 10, TAB 10/31/24 Bacillus Coagulans (Bacid) 1 Cap Cap, 1 CAP PO DAILY, CAP 10/31/24 Ferrous Gluconate (Ferrous Gluconate) 324 Mg Tab, 325 MG PO DAILY, TAB 10/31/24 Metoprolol Tartrate (Lopressor) 25 Mg Tb, 1 TAB PO BID 10/31/24 Clotrimazole (Topical) (Clotrimazole Anti-Fungal) 1 % Cre, 1 APPLIC TOP BID 10/31/24 Ketoconazole (Ketoconazole) 2 % Cre, 1 APPLIC TOP DAILY 10/31/24 Ciclopirox (Ciclopirox Nail Lacquer) 8 % Mickie, TOP Apply 1 application topically every evening at bedtime. Apply on nail and surrounding skin. After 7 days remove with alcohol and continue cycle. 10/31/24 Isosorbide Mononitrate (ISMO TABLET) 20 Mg Tb, 1 TAB PO BID 10/31/24 Gemfibrozil (Gemfibrozil) 600 Mg Tab, 1 TAB PO BID 10/31/24 Ursodiol (Ursodiol) 300 Mg Cap, 1 CAP PO BID 10/31/24 Famotidine (Famotidine) 20 Mg Tab, 1 TAB PO BID 10/31/24 Metronidazole (Topical) (Metronidazole) 0.75 % Gel, 1 APPLIC TOP BID 10/31/24 Acetaminophen (Acetaminophen Extra Stren) 500 Mg Tab, 1 TAB PO Q6HPRN PRN for PAIN1-3 10/31/24 Metformin Hydrochloride (Metformin Hcl Er) 750 Mg Tab, 1 TAB PO TID 10/31/24 Empagliflozin (Jardiance) 10 Mg Tab, 1 TAB PO DAILY 10/31/24 Nitroglycerin (NTROSTAT SUBLINGUAL) 0.4 Mg Sl, 0.4 MG SL PRN PRN for FOR CHEST PAIN, TAB *MAY REPEAT EVERY 5 MINUTES X 3 TOTAL IF NO RELIEF, INITIATE ANALGESIC THERAPY. NOTIFY PHYSICIAN *Do not crush. 10/31/24 Fluticasone Propionate (Nasal) (Fluticasone Propionate) 50 Mcg/Act Spr, SPRAY PORSHA 10/31/24 Fenofibrate (FENOFIBRATE) 145 Mg Tab, 1 TAB PO DAILY 10/31/24 Clopidogrel Bisulfate (CLOPIDOGREL) 75 Mg Tab, 1 TAB PO DAILY 10/31/24 Atorvastatin Calcium (ATORVASTATIN CALCIUM) 20 Mg Tab, 1 TAB PO DAILY 10/31/24 Gabapentin (Gabapentin) 100 Mg Cap, 1 CAP PO TID 10/31/24 Insulin Aspart Protamine & Asp (Insulin Aspart Protamine/ (70-30) 100 Unit/ml) 1 Inj Inj 36 UNITS SC IN THE MORNING AND 15 UNITS SC AT NIGHT. 10/31/24 Current Medications Current Medications Medications (Trade) Dose Ordered Sig/Carlos Route PRN Reason Start Time Stop Time Status Last Admin Aspirin 81 mg DAILY PO 01/26/25 10:00 01/26/25 10:03 Atorvastatin Calcium (Lipitor) 40 mg HS PO 01/25/25 22:00 01/25/25 22:05 Morphine Sulfate 2 mg Q30MP PRN IV FOR CHEST PAIN 01/25/25 16:00 Cancel Acetaminophen (Tylenol Tablet) 650 mg Q6HP PRN PO MILD PAIN (1-3 PAIN SCALE) 01/25/25 16:00 01/26/25 02:38 Nitroglycerin (Ntrostat Sublingual) 0.4 mg Q5MINP PRN SL FOR CHEST PAIN 01/25/25 16:00 Ondansetron HCl (Zofran) 4 mg Q4HP PRN IV NAUSEA / VOMITING 01/25/25 16:00 01/25/25 17:41 Nitroglycerin (Ntrostat Sublingual) 0.4 mg Q5MINP PRN SL FOR CHEST PAIN 01/25/25 16:00 UNV Morphine Sulfate 2 mg Q30M PRN IV FOR CHEST PAIN 01/25/25 16:00 01/26/25 11:15 Diagnostic Test (Pha) (Accu-Chek Comfort Curve T) 1 strip ACHS 01/25/25 17:00 01/26/25 11:04 Insulin Human Regular (InsuLIN R) ACHS SC 01/25/25 17:00 01/26/25 11:23 Dextrose 50 ml UD PRN IV Blood Sugar LESS THAN 60 01/25/25 16:00 Ascorbic Acid (Vitamin C Tablet) 500 mg DAILY PO 01/26/25 10:00 01/26/25 10:04 Clopidogrel Bisulfate (Plavix) 75 mg DAILY PO 01/26/25 10:00 01/26/25 10:03 Famotidine (Pepcid Tablet) 20 mg BID PO 01/25/25 22:00 01/26/25 10:02 Gabapentin (Neurontin Capsule) 100 mg TID PO 01/25/25 22:00 01/26/25 14:03 Gemfibrozil (Lopid Tablet) 600 mg BID PO 01/25/25 22:00 01/26/25 10:06 Isosorbide Mononitrate (Ismo Tablet) 20 mg BID PO 01/25/25 22:00 01/26/25 10:04 Lisinopril (Zestril Tablet) 10 mg DAILY PO 01/26/25 10:00 01/26/25 10:02 Metoprolol Tartrate (Lopressor Tablet) 25 mg BID PO 01/25/25 22:00 01/26/25 10:03 Minoxidil (Loniten Tablet) 1.25 mg DAILY PO 01/26/25 10:00 Ursodiol (Actigall) 300 mg BID PO 01/25/25 22:00 01/26/25 10:59 Patient Own Medication 1 cap DAILY PO 01/26/25 10:00 Patient Own Medication 1 tab DAILY PO 01/26/25 10:00 Patient Own Medication 325 mg DAILY PO 01/26/25 10:00 Patient Own Medication 17 gm DAILY PO 01/26/25 10:00 UNV Patient Own Medication 50 mg HS PO 01/25/25 22:00 UNV Albuterol (Ventolin Medneb) 2.5 mg Q4HPRN PRN NEB SHORTNESS OF BREATH 01/25/25 16:15 Ipratropium [place] (Atrovent Medneb) 0.5 mg Q4HPRN PRN NEB SHORTNESS OF BREATH 01/25/25 16:15 Trazodone HCl (Desyrel) 50 mg HS PO 01/25/25 22:00 01/25/25 22:06 Polyethylene Glycol (Miralax 17GM Powder) 17 gm DAILY PO 01/26/25 10:00 01/26/25 10:02 Review of Systems Constitutional: No symptom reported Ears, Nose, & Throat: No symptom reported Eyes: No symptom reported Neurological: No symptoms reported Pulmonary/Respiratory: No symptom reported Cardiovascular: Chest pain Gastrointestinal: No symptom reported Genitourinary: No symptom reported Musculoskeletal: No symptom reported Skin: No symptom reported Psychiatric: No symptom reported Endocrine: No symptom reported Hemotologic/Lymphatic: No symptom reported Vital Signs Vital Signs Date Time Temp Pulse Resp B/P (MAP) Pulse Ox O2 Delivery O2 Flow Rate FiO2 01/26/25 13:00 97.4 68 18 95/68 (77) 95 97.4 01/26/25 08:00 Room Air* 0 21 Physical Exam GENERAL: Alert and oriented x 3. No acute distress. Morbidly obese. EYES: PERRL, EOMI. Anicteric. HENT: Moist mucous membranes. LUNGS: Clear to auscultation bilaterally. CARDIOVASCULAR: Regular rate and rhythm. ABDOMEN: Soft, nontender and nondistended. EXTREMITIES: No edema. NEUROLOGIC: No focal neurological deficits. SKIN: Warm, dry. Labs/Diagnostic Data Labs Test 01/26/25 11:03 01/26/25 05:20 01/25/25 17:20 01/25/25 15:03 Range/Units POC Glucose 201 H 70-106 mg/dl White Blood Count 4.5 4.4-10.8 10^3/uL Red Blood Count 4.46 L 4.5-5.90 10^6/uL Hemoglobin 14.0 13.5-17.5 g/dL Hematocrit 41.3 41.0-53.0 % Mean Corpuscular Volume 92.7 80.0-100.0 fL Mean Corpuscular Hemoglobin 31.5 28.0-32.0 pg Mean Corpuscular Hemoglobin Concent 33.9 32.0-36.0 g/dL Red Cell Distribution Width 14.6 H 11.8-14.3 % Platelet Count 217 140-450 10^3/uL Mean Platelet Volume 8.5 6.9-10.8 fL Neutrophils (%) (Auto) 36.6 L 37.0-80.0 % Lymphocytes (%) (Auto) 50.4 H 10.0-50.0 % Monocytes (%) (Auto) 8.4 0.0-12.0 % Eosinophils (%) (Auto) 3.9 0.0-7.0 % Basophils (%) (Auto) 0.7 0.0-2.0 % Neutrophils # (Auto) 1.7 1.6-8.6 10 ^3/uL Lymphocytes # (Auto) 2.3 0.4-5.4 10 ^3/uL Monocytes # (Auto) 0.4 0-1.3 10 ^3/uL Eosinophils # (Auto) 0.2 0-0.8 10 ^3/uL Basophils # (Auto) 0 0-0.2 10 ^3/uL Nucleated Red Blood Cells 0.2 % Sodium Level 138 136-145 mmol/L Potassium Level 4.1 3.5-5.1 mmol/L Chloride Level 105 98-107 mmol/L Carbon Dioxide Level 24 20-31 mmol/L Anion Gap 9 5-15 Blood Urea Nitrogen 23 9-23 mg/dL Creatinine 1.23 0.700-1.30 mg/dL Glomerular Filtration Rate Calc 69 >90 mL/min BUN/Creatinine Ratio 18.7 10.0-20.0 Serum Glucose 126 H 74-106 mg/dL Calcium Level 9.9 8.7-10.4 mg/dL Magnesium Level 2.1 1.6-2.6 mg/dL Triglycerides Level 464 H < 150 mg/dL Cholesterol Level 169 < 200 mg/dL LDL Cholesterol < 100 mg/dL HDL Cholesterol 21 L 40-59 mg/dL Troponin I High Sensitivity < 3 L </=54 ng/L Hemoglobin A1c 7.4 H <5.7 % A1C Thyroid Stimulating Hormone (TSH) 1.50 0.55-4.78 uIU/mL Free Thyroxine (T4) Calculated 0.99 0.89-1.76 ng/dL Test 01/25/25 13:47 01/25/25 00:00 Range/Units Total Bilirubin 0.3 0.2-1.0 mg/dL Aspartate Amino Transferase (AST) 76 H 13-40 U/L Alanine Aminotransferase (ALT) 64 H 7-40 U/L Alkaline Phosphatase 43 L 46-116 U/L B-Type Natriuretic Peptide 8.62 0-100 pg/mL Total Protein 7.5 5.7-8.2 g/dL Albumin 4.8 3.2-4.8 g/dL Urine Color Light-yellow Yellow Urine Clarity Clear Clear Urine pH 5.5 5.0-9.0 Urine Specific [place] 1.024 1.001-1.035 Urine Protein Negative Negative Urine Ketones Negative Negative Urine Blood Negative Negative /uL Urine Nitrite Negative Negative Urine Bilirubin Negative Negative Urine Urobilinogen Normal Negative mg/dL Urine Leukocyte Esterase Negative Negative /uL Urine RBC 3 0 - 3 /hpf Urine Microscopic WBC < 1 0-3 /HPF Urine Squamous Epithelial Cells Few <5 /hpf Urine Bacteria None seen None Seen /hpf Urine Glucose 4+ H Normal mg/dL Urine Opiates Screen Neg NEGATIVE Urine Fentanyl Screen Neg NEGATIVE Urine Barbiturates Screen Neg NEGATIVE Urine Phencyclidine Screen Neg NEGATIVE Urine Amphetamines Screen Neg NEGATIVE Urine Benzodiazepines Screen Neg NEGATIVE Urine Cocaine Screen Neg NEGATIVE Urine Cannabinoids Screen Neg NEGATIVE Assessment Chest pain rule out progressive coronary artery disease. Severe coronary artery disease status post triple-vessel CABG (on Plavix and aspirin). Hypertension. Dyslipidemia. Type 2 diabetes mellitus. Morbid obesity. Plan/Recommendation I agree with your ongoing assessment and care of plan. Patient has been seen by Amaris Taylor NP on my behalf, her and I discussed the plan with the patient. Patient seen and evaluated by me at bedside. The patient underwent a recent Cardiolite stress test normal rest and stress radionuclide test myocardial perfusion scan on 11/02/2024. He also underwent a transthoracic echocardiogram revealing a normal LVEF at 65% with normal valves and normal RV function. Multiple 12 lead electrocardiograms did not reveal ST-T segment changes. Patient is to follow-up as outpatient with Dr. Hoffmann on 02/02/2025 for further outpatient workup. There is no further inpatient cardiac workup indicated at this time. Additional plan as per the hospital course. Plan discussed with: Patient NYHA Physical activity limitations: NA Date of Service: Jan 26, 2025 Billing Provider: CEZAR FISHMAN MD Cardiology Common Codes: [id number] INP/OBS CARE (High) CEZAR FISHMAN MD Jan 26, 2025 16:03
[2025-01-27] VITALS (12 sets, daily range): BP systolic 116–133; BP diastolic 70–84; PULSE 62–80; RESP 16–20; TEMP 96.7–98.2; O2SAT 95–100
[2025-01-27] MEDS: OXYCODONE W/ ACETAMINOPHEN 5/325MG TABLET PO PRN (04:40)
[2025-01-27] MEDS: ALBUTEROL SULF 2.5 MG/0.5ML(0.5%) NEB SOLN NEB PRN (08:16)
[2025-01-27] MEDS: IPRATROPIUM BROM 0.5 MG/2.5ML INH SOL NEB PRN (08:16)
--- NOTE | 2025-01-27 13:44 | DVHPN2 ---
Reviewed: Care Plan, H&P, Labs, Medications Changes from previous H/P or p: No Changes General: Per HPI Neurological: Weakness Cardiovascular: Chest Pain Respiratory: Shortness of breath Musculoskeletal: shoulder pain Objective Vitals Vital Signs Date Time Temp Pulse Resp B/P (MAP) Pulse Ox O2 Delivery O2 Flow Rate FiO2 01/27/25 12:40 96.7 65 20 117/75 (89) 98 96.7 01/27/25 08:16 Nasal Cannula* 1 24 Intake/Output Intake and Output 01/27/25 07:00 Intake Total 1640 ml Balance 1640 ml Intake Oral 1640 ml # Voids 6 # Bowel Movements 1 Medications Current Medications Medications Dose Ordered Sig/Carlos Route Start Time Stop Time Status Last Admin Dose Admin Aspirin 81 mg DAILY PO 01/26/25 10:00 01/27/25 10:29 81 MG Atorvastatin Calcium 40 mg HS PO 01/25/25 22:00 01/26/25 21:27 40 MG Morphine Sulfate 2 mg Q30MP PRN IV 01/25/25 16:00 Cancel Acetaminophen 650 mg Q6HP PRN PO 01/25/25 16:00 01/26/25 02:38 650 MG Nitroglycerin 0.4 mg Q5MINP PRN SL 01/25/25 16:00 Ondansetron HCl 4 mg Q4HP PRN IV 01/25/25 16:00 01/25/25 17:41 4 MG Nitroglycerin 0.4 mg Q5MINP PRN SL 01/25/25 16:00 UNV Morphine Sulfate 2 mg Q30M PRN IV 01/25/25 16:00 01/27/25 10:58 2 MG Diagnostic Test (Pha) 1 strip ACHS 01/25/25 17:00 01/27/25 11:44 1 STRIP Insulin Human Regular ACHS SC 01/25/25 17:00 01/27/25 11:48 4 UNITS Dextrose 50 ml UD PRN IV 01/25/25 16:00 Ascorbic Acid 500 mg DAILY PO 01/26/25 10:00 01/27/25 10:00 500 MG Clopidogrel Bisulfate 75 mg DAILY PO 01/26/25 10:00 01/27/25 10:43 75 MG Famotidine 20 mg BID PO 01/25/25 22:00 01/27/25 10:29 20 MG Gabapentin 100 mg TID PO 01/25/25 22:00 01/27/25 06:22 100 MG Gemfibrozil 600 mg BID PO 01/25/25 22:00 01/27/25 10:00 600 MG Isosorbide Mononitrate 20 mg BID PO 01/25/25 22:00 01/27/25 10:40 20 MG Lisinopril 10 mg DAILY PO 01/26/25 10:00 01/27/25 10:42 10 MG Metoprolol Tartrate 25 mg BID PO 01/25/25 22:00 01/27/25 10:41 25 MG Minoxidil 1.25 mg DAILY PO 01/26/25 10:00 01/27/25 10:42 1.25 MG Ursodiol 300 mg BID PO 01/25/25 22:00 01/27/25 10:42 300 MG Patient Own Medication 1 cap DAILY PO 01/26/25 10:00 Patient Own Medication 1 tab DAILY PO 01/26/25 10:00 Patient Own Medication 325 mg DAILY PO 01/26/25 10:00 Patient Own Medication 17 gm DAILY PO 01/26/25 10:00 UNV Patient Own Medication 50 mg HS PO 01/25/25 22:00 UNV Albuterol 2.5 mg Q4HPRN PRN NEB 01/25/25 16:15 01/27/25 08:16 2.5 MG Ipratropium [place] 0.5 mg Q4HPRN PRN NEB 01/25/25 16:15 01/27/25 08:16 0.5 MG Trazodone HCl 50 mg HS PO 01/25/25 22:00 01/26/25 21:27 50 MG Polyethylene Glycol 17 gm DAILY PO 01/26/25 10:00 01/27/25 10:28 17 GM Oxycodone/ Acetaminophen 1 tab Q6HP PRN PO 01/27/25 04:30 01/27/25 04:40 1 TAB Laboratory Results Laboratory Tests 01/26/25 05:20 Urinalysis Test 01/25/25 00:00 Urine Color Light-yellow (Yellow) Urine Clarity Clear (Clear) Urine pH 5.5 (5.0-9.0) Urine Specific [place] 1.024 (1.001-1.035) Urine Protein Negative (Negative) Urine Ketones Negative (Negative) Urine Blood Negative /uL (Negative) Urine Nitrite Negative (Negative) Urine Bilirubin Negative (Negative) Urine Urobilinogen Normal mg/dL (Negative) Urine Leukocyte Esterase Negative /uL (Negative) Urine RBC 3 /hpf (0 - 3) Urine Microscopic WBC < 1 /HPF (0-3) Urine Squamous Epithelial Cells Few /hpf (<5) Urine Bacteria None seen /hpf (None Seen) Urine Glucose 4+ mg/dL (Normal) H Assessment/Plan Assessment/Plan Thomas Reza is a 54-year-old male with past medical history of hypertension, hyperlipidemia, diabetes, anxiety, obesity, depression, and CABG who presents to the ED with chest pain and tightness that radiates to his left shoulder with shortness of breath x 3 days. Patient reports that the pain is 9/10 stabbing like and intermittent in nature. He states that there are no triggering or alleviating factors. Patient reports that he was packing his belongings at the time and resides at a board and care. He also reports that he ambulates with a front wheel walker. Patient denies any recent sick contacts, recent trauma or injury, recent travels, recent ingestion of spoiled food, lightheadedness, dizziness, weakness, urinary symptoms, abdominal pain, nausea, vomiting, diarrhea, fever, or chills. Chest pain rule out progressive coronary artery disease. Severe coronary artery disease status post triple-vessel CABG (on Plavix and aspirin). Hypertension. Dyslipidemia. Type 2 diabetes mellitus. Morbid obesity. Plan discussed with: Patient Date of Service: Jan 27, 2025 Billing Provider: ELLIS LITTLE DO Common Visit Codes: [id number] INP/OBS CARE(HIGH) ELLIS LITTLE DO Jan 27, 2025 13:44
--- NOTE | 2025-01-27 22:55 | DVHPN2 ---
Progress Note - Dictate Date Seen: Jan 27, 2025 Medical Necessity Reason Pt with a Central, PICC or Fol: No Subjective Patient was seen and evaluated in follow up. Patient is on 1 LPM NC. Patient complains of generalized pain. BS in the 230's. Telemetry reviewed. vital signs Vital Sign Date Time Temp Pulse Resp B/P (MAP) Pulse Ox O2 Delivery O2 Flow Rate FiO2 01/27/25 12:40 96.7 65 20 117/75 (89) 98 96.7 01/27/25 08:16 Nasal Cannula* 1 24 Total Intake and Output 01/26/25 01/26/25 01/27/25 15:00 23:00 07:00 Intake Total 240 ml 800 ml 600 ml Balance 240 ml 800 ml 600 ml medications Current Medications Medications Dose Ordered Sig/Carlos Route Start Time Stop Time Status Last Admin Dose Admin Aspirin 81 mg DAILY PO 01/26/25 10:00 01/27/25 10:29 81 MG Atorvastatin Calcium 40 mg HS PO 01/25/25 22:00 01/26/25 21:27 40 MG Morphine Sulfate 2 mg Q30MP PRN IV 01/25/25 16:00 Cancel Acetaminophen 650 mg Q6HP PRN PO 01/25/25 16:00 01/26/25 02:38 650 MG Nitroglycerin 0.4 mg Q5MINP PRN SL 01/25/25 16:00 Ondansetron HCl 4 mg Q4HP PRN IV 01/25/25 16:00 01/25/25 17:41 4 MG Nitroglycerin 0.4 mg Q5MINP PRN SL 01/25/25 16:00 UNV Morphine Sulfate 2 mg Q30M PRN IV 01/25/25 16:00 01/27/25 10:58 2 MG Diagnostic Test (Pha) 1 strip ACHS 01/25/25 17:00 01/27/25 11:44 1 STRIP Insulin Human Regular ACHS SC 01/25/25 17:00 01/27/25 11:48 4 UNITS Dextrose 50 ml UD PRN IV 01/25/25 16:00 Ascorbic Acid 500 mg DAILY PO 01/26/25 10:00 01/27/25 10:00 500 MG Clopidogrel Bisulfate 75 mg DAILY PO 01/26/25 10:00 01/27/25 10:43 75 MG Famotidine 20 mg BID PO 01/25/25 22:00 01/27/25 10:29 20 MG Gabapentin 100 mg TID PO 01/25/25 22:00 01/27/25 14:48 100 MG Gemfibrozil 600 mg BID PO 01/25/25 22:00 01/27/25 10:00 600 MG Isosorbide Mononitrate 20 mg BID PO 01/25/25 22:00 01/27/25 10:40 20 MG Lisinopril 10 mg DAILY PO 01/26/25 10:00 01/27/25 10:42 10 MG Metoprolol Tartrate 25 mg BID PO 01/25/25 22:00 01/27/25 10:41 25 MG Minoxidil 1.25 mg DAILY PO 01/26/25 10:00 01/27/25 10:42 1.25 MG Ursodiol 300 mg BID PO 01/25/25 22:00 01/27/25 10:42 300 MG Patient Own Medication 1 cap DAILY PO 01/26/25 10:00 Patient Own Medication 1 tab DAILY PO 01/26/25 10:00 Patient Own Medication 325 mg DAILY PO 01/26/25 10:00 Patient Own Medication 17 gm DAILY PO 01/26/25 10:00 UNV Patient Own Medication 50 mg HS PO 01/25/25 22:00 UNV Albuterol 2.5 mg Q4HPRN PRN NEB 01/25/25 16:15 01/27/25 08:16 2.5 MG Ipratropium [place] 0.5 mg Q4HPRN PRN NEB 01/25/25 16:15 01/27/25 08:16 0.5 MG Trazodone HCl 50 mg HS PO 01/25/25 22:00 01/26/25 21:27 50 MG Polyethylene Glycol 17 gm DAILY PO 01/26/25 10:00 01/27/25 10:28 17 GM Oxycodone/ Acetaminophen 1 tab Q6HP PRN PO 01/27/25 04:30 01/27/25 04:40 1 TAB objective GENERAL: Alert and oriented x 3. No acute distress. Morbidly obese. EYES: PERRL, EOMI. Anicteric. HENT: Moist mucous membranes. LUNGS: Clear to auscultation bilaterally. CARDIOVASCULAR: Regular rate and rhythm. ABDOMEN: Soft, nontender and nondistended. EXTREMITIES: No edema. NEUROLOGIC: No focal neurological deficits. SKIN: Warm, dry. laboratory and microbiology Laboratory Tests 01/26/25 05:20 Test 01/26/25 05:20 Range/Units Serum Glucose 126 H 74-106 mg/dL Problem List Chest pain rule out progressive coronary artery disease. Severe coronary artery disease status post triple-vessel CABG (on Plavix and aspirin). Hypertension. Dyslipidemia. Type 2 diabetes mellitus. Morbid obesity. Assessment/Plan Continued all current supportive medical care. Lisinopril. Aspirin, Metoprolol, Plavix. Tylenol #3 and Morphine for pain management. Nebulized breathing treatments. Additional plan as per the hospital course. Plan discussed with: Patient CEZAR FISHMAN MD Jan 27, 2025 15:01
[2025-01-28] VITALS (12 sets, daily range): BP systolic 97–126; BP diastolic 49–80; PULSE 57–101; RESP 16–20; TEMP 97.7–98.4; O2SAT 91–99
--- NOTE | 2025-01-28 07:28 | ECG ---
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
--- NOTE | 2025-01-28 15:01 | DVHDS2 ---
Discharge Summary Date of Admission Jan 25, 2025 at 15:50 Date of Discharge: Jan 27, 2025 Labs/Diagnostic Data: Laboratory Results Test 01/27/25 18:07 01/26/25 05:20 01/25/25 17:20 01/25/25 15:03 POC Glucose 385 mg/dl (70-106) White Blood Count 4.5 10^3/uL (4.4-10.8) Red Blood Count 4.46 10^6/uL (4.5-5.90) Hemoglobin 14.0 g/dL (13.5-17.5) Hematocrit 41.3 % (41.0-53.0) Mean Corpuscular Volume 92.7 fL (80.0-100.0) Mean Corpuscular Hemoglobin 31.5 pg (28.0-32.0) Mean Corpuscular Hemoglobin Concent 33.9 g/dL (32.0-36.0) Red Cell Distribution Width 14.6 % (11.8-14.3) Platelet Count 217 10^3/uL (140-450) Mean Platelet Volume 8.5 fL (6.9-10.8) Neutrophils (%) (Auto) 36.6 % (37.0-80.0) Lymphocytes (%) (Auto) 50.4 % (10.0-50.0) Monocytes (%) (Auto) 8.4 % (0.0-12.0) Eosinophils (%) (Auto) 3.9 % (0.0-7.0) Basophils (%) (Auto) 0.7 % (0.0-2.0) Neutrophils # (Auto) 1.7 10 ^3/uL (1.6-8.6) Lymphocytes # (Auto) 2.3 10 ^3/uL (0.4-5.4) Monocytes # (Auto) 0.4 10 ^3/uL (0-1.3) Eosinophils # (Auto) 0.2 10 ^3/uL (0-0.8) Basophils # (Auto) 0 10 ^3/uL (0-0.2) Nucleated Red Blood Cells 0.2 % Sodium Level 138 mmol/L (136-145) Potassium Level 4.1 mmol/L (3.5-5.1) Chloride Level 105 mmol/L (98-107) Carbon Dioxide Level 24 mmol/L (20-31) Anion Gap 9 (5-15) Blood Urea Nitrogen 23 mg/dL (9-23) Creatinine 1.23 mg/dL (0.700-1.30) Glomerular Filtration Rate Calc 69 mL/min (>90) BUN/Creatinine Ratio 18.7 (10.0-20.0) Serum Glucose 126 mg/dL (74-106) Calcium Level 9.9 mg/dL (8.7-10.4) Magnesium Level 2.1 mg/dL (1.6-2.6) Triglycerides Level 464 mg/dL (< 150) Cholesterol Level 169 mg/dL (< 200) LDL Cholesterol mg/dL (< 100) HDL Cholesterol 21 mg/dL (40-59) Troponin I High Sensitivity < 3 ng/L (</=54) Hemoglobin A1c 7.4 % A1C (<5.7) Thyroid Stimulating Hormone (TSH) 1.50 uIU/mL (0.55-4.78) Free Thyroxine (T4) Calculated 0.99 ng/dL (0.89-1.76) Test 01/25/25 13:47 01/25/25 00:00 Total Bilirubin 0.3 mg/dL (0.2-1.0) Aspartate Amino Transferase (AST) 76 U/L (13-40) Alanine Aminotransferase (ALT) 64 U/L (7-40) Alkaline Phosphatase 43 U/L (46-116) B-Type Natriuretic Peptide 8.62 pg/mL (0-100) Total Protein 7.5 g/dL (5.7-8.2) Albumin 4.8 g/dL (3.2-4.8) Urine Color Light-yellow (Yellow) Urine Clarity Clear (Clear) Urine pH 5.5 (5.0-9.0) Urine Specific [place] 1.024 (1.001-1.035) Urine Protein Negative (Negative) Urine Ketones Negative (Negative) Urine Blood Negative /uL (Negative) Urine Nitrite Negative (Negative) Urine Bilirubin Negative (Negative) Urine Urobilinogen Normal mg/dL (Negative) Urine Leukocyte Esterase Negative /uL (Negative) Urine RBC 3 /hpf (0 - 3) Urine Microscopic WBC < 1 /HPF (0-3) Urine Squamous Epithelial Cells Few /hpf (<5) Urine Bacteria None seen /hpf (None Seen) Urine Glucose 4+ mg/dL (Normal) Urine Opiates Screen Neg (NEGATIVE) Urine Fentanyl Screen Neg (NEGATIVE) Urine Barbiturates Screen Neg (NEGATIVE) Urine Phencyclidine Screen Neg (NEGATIVE) Urine Amphetamines Screen Neg (NEGATIVE) Urine Benzodiazepines Screen Neg (NEGATIVE) Urine Cocaine Screen Neg (NEGATIVE) Urine Cannabinoids Screen Neg (NEGATIVE) Other Laboratory Tests 01/26/25 05:20 Brief Hx & Hospital Course: Chest pain radiating to the left shoulder with shortness of breath Possible viral PNA Obesity RICKEY likely prerenal Diabetes type 2 History of hypertension History of hyperlipidemia History of anxiety History of depression History of CABG Condition at Discharge: Fair Final Diagnosis/Problems List see above Discharge Disposition: Home Discharge Instruct/Medications Diet: Cardiac 2g Na,low cholest Activity: Light activity Scheduled Ascorbic Acid (Gnp Vitamin C W/Amelia Hips), 1 TAB PO DAILY, (Reported) Aspirin (Aspir-81), 81 MG PO DAILY, (Reported) Atorvastatin Calcium (Atorvastatin Calcium), 1 TAB PO DAILY, (Reported) Bacillus Coagulans (Bacid), 1 CAP PO DAILY, (Reported) Clopidogrel Bisulfate (Clopidogrel), 1 TAB PO DAILY, (Reported) Clotrimazole (Topical) (Clotrimazole Anti-Fungal), 1 APPLIC TOP BID, (Reported) Empagliflozin (Jardiance), 1 TAB PO DAILY, (Reported) Famotidine (Famotidine), 1 TAB PO BID, (Reported) Fenofibrate (Fenofibrate), 1 TAB PO DAILY, (Reported) Ferrous Gluconate (Ferrous Gluconate), 325 MG PO DAILY, (Reported) Gabapentin (Gabapentin), 1 CAP PO TID, (Reported) Gemfibrozil (Gemfibrozil), 1 TAB PO BID, (Reported) Isosorbide Mononitrate (Ismo Tablet), 1 TAB PO BID, (Reported) Ketoconazole (Ketoconazole), 1 APPLIC TOP DAILY, (Reported) Lisinopril (Lisinopril), 10 MG PO DAILY, (Reported) Metformin Hydrochloride (Metformin Hcl Er), 1 TAB PO TID, (Reported) Metoprolol Tartrate (Lopressor), 1 TAB PO BID, (Reported) Metronidazole (Topical) (Metronidazole), 1 APPLIC TOP BID, (Reported) Minoxidil (Loniten), 0.5 TAB PO DAILY, (Reported) Ranolazine (Ranolazine ER), 500 MG PO BID, (Reported) Roflumilast (Antiseborrheic) (Zoryve), 0.3 % EX DAILY, (Reported) Ursodiol (Ursodiol), 1 CAP PO BID, (Reported) Scheduled PRN Acetaminophen (Acetaminophen Extra Stren), 1 TAB PO Q6HPRN PRN for PAIN1-3, (Reported) Albuterol Sulfate (Ventolin Mdi), 2 PUFF IN Q6HPRN PRN for wheezing, (Reported) Nitroglycerin (Ntrostat Sublingual), 0.4 MG SL PRN PRN for FOR CHEST PAIN, (Reported) Ondansetron HCl (Ondansetron), 4 MG PO Q8HPRN PRN for NAUSEA / VOMITING, (Reported) Oxycodone W/ Acetaminophen (Percocet 5/325MG), 1 TAB PO for PAIN SCALE 7 THRU 10, (Reported) Miscellaneous Medications Ciclopirox (Ciclopirox Nail Lacquer), TOP, (Reported) Escitalopram Oxalate (Escitalopram Oxalate), PO, (Reported) Fluticasone Propionate (Nasal) (Fluticasone Propionate), SPRAY PORSHA, (Reported) Insulin Aspart Protamine & Asp (Insulin Aspart Protamine/ (70-30) 100 Unit/ml), (Reported) Discharge Statement: "Patient was advised to return to the ER or call 911 if any headaches, dizziness, shortness of breath, chest pain, abdominal pain, bleeding, fevers, or worsening of medical condition. Patient was counseled about treatment plan, medications, possible side effects, patientverbalized understanding. All questions were answered to the best of my ability. This discharge took greater then 30 minutes in planning, reviewing documentation, counseling the patient, and discussing with other team members." ASSESSMENT ASSESSMENT Assessment Date of Service: Jan 28, 2025 Billing Provider: ELLIS LITTLE DO Common Visit Codes: 14383-[id number] DISCH DAY >30min ELLIS LITTLE DO Jan 28, 2025 15:01
--- NOTE | 2025-01-28 23:15 | DVHPN2 ---
Progress Note - Dictate Date Seen: Jan 28, 2025 Medical Necessity Reason Pt with a Central, PICC or Fol: No Subjective Patient was seen and evaluated in follow up. No overnight evens. Patient on room air. Patients BS are elevated in the 250s-300s. Telemetry reviewed. vital signs Vital Sign Date Time Temp Pulse Resp B/P (MAP) Pulse Ox O2 Delivery O2 Flow Rate FiO2 01/28/25 22:07 97/52 01/28/25 21:57 75 01/28/25 20:51 97.7 16 91 97.7 01/28/25 20:08 Room Air* 0 21 Total Intake and Output 01/27/25 01/27/25 01/28/25 15:00 23:00 07:00 Intake Total 300 ml 800 ml 1000 ml Balance 300 ml 800 ml 1000 ml medications Current Medications Medications Dose Ordered Sig/Carlos Route Start Time Stop Time Status Last Admin Dose Admin Aspirin 81 mg DAILY PO 01/26/25 10:00 01/28/25 09:57 81 MG Atorvastatin Calcium 40 mg HS PO 01/25/25 22:00 01/28/25 21:52 40 MG Morphine Sulfate 2 mg Q30MP PRN IV 01/25/25 16:00 Cancel Acetaminophen 650 mg Q6HP PRN PO 01/25/25 16:00 01/26/25 02:38 650 MG Nitroglycerin 0.4 mg Q5MINP PRN SL 01/25/25 16:00 Ondansetron HCl 4 mg Q4HP PRN IV 01/25/25 16:00 01/25/25 17:41 4 MG Nitroglycerin 0.4 mg Q5MINP PRN SL 01/25/25 16:00 UNV Morphine Sulfate 2 mg Q30M PRN IV 01/25/25 16:00 01/27/25 10:58 2 MG Diagnostic Test (Pha) 1 strip ACHS 01/25/25 17:00 01/28/25 21:45 1 STRIP Insulin Human Regular ACHS SC 01/25/25 17:00 01/28/25 21:51 8 UNITS Dextrose 50 ml UD PRN IV 01/25/25 16:00 Ascorbic Acid 500 mg DAILY PO 01/26/25 10:00 01/28/25 09:57 500 MG Clopidogrel Bisulfate 75 mg DAILY PO 01/26/25 10:00 01/28/25 09:58 75 MG Famotidine 20 mg BID PO 01/25/25 22:00 01/28/25 21:52 20 MG Gabapentin 100 mg TID PO 01/25/25 22:00 01/28/25 21:52 100 MG Gemfibrozil 600 mg BID PO 01/25/25 22:00 01/28/25 21:51 600 MG Isosorbide Mononitrate 20 mg BID PO 01/25/25 22:00 01/28/25 22:07 20 MG Lisinopril 10 mg DAILY PO 01/26/25 10:00 01/28/25 09:58 10 MG Metoprolol Tartrate 25 mg BID PO 01/25/25 22:00 01/28/25 09:58 25 MG Minoxidil 1.25 mg DAILY PO 01/26/25 10:00 01/28/25 09:56 1.25 MG Ursodiol 300 mg BID PO 01/25/25 22:00 01/28/25 11:03 300 MG Patient Own Medication 1 cap DAILY PO 01/26/25 10:00 Patient Own Medication 1 tab DAILY PO 01/26/25 10:00 Patient Own Medication 325 mg DAILY PO 01/26/25 10:00 Patient Own Medication 17 gm DAILY PO 01/26/25 10:00 UNV Patient Own Medication 50 mg HS PO 01/25/25 22:00 UNV Albuterol 2.5 mg Q4HPRN PRN NEB 01/25/25 16:15 01/28/25 20:07 2.5 MG Ipratropium Doyline 0.5 mg Q4HPRN PRN NEB 01/25/25 16:15 01/28/25 20:07 0.5 MG Trazodone HCl 50 mg HS PO 01/25/25 22:00 01/28/25 21:51 50 MG Polyethylene Glycol 17 gm DAILY PO 01/26/25 10:00 01/28/25 09:52 17 GM Oxycodone/ Acetaminophen 1 tab Q6HP PRN PO 01/27/25 04:30 01/28/25 09:55 1 TAB objective GENERAL: Alert and oriented x 3. No acute distress. Morbidly obese. EYES: PERRL, EOMI. Anicteric. HENT: Moist mucous membranes. LUNGS: Clear to auscultation bilaterally. CARDIOVASCULAR: Regular rate and rhythm. ABDOMEN: Soft, nontender and nondistended. EXTREMITIES: No edema. NEUROLOGIC: No focal neurological deficits. SKIN: Warm, dry. laboratory and microbiology Laboratory Tests 01/26/25 05:20 Test 01/26/25 05:20 Range/Units Serum Glucose 126 H 74-106 mg/dL Problem List Chest pain rule out progressive coronary artery disease. Severe coronary artery disease status post triple-vessel CABG (on Plavix and aspirin). Hypertension. Dyslipidemia. Type 2 diabetes mellitus. Morbid obesity. Assessment/Plan Continued all current supportive medical care. Lisinopril. Aspirin, Metoprolol, Plavix. Tylenol #3 and Morphine for pain management. Nebulized breathing treatments. Additional plan as per the hospital course. Plan discussed with: Patient CEZAR FISHMAN MD Jan 28, 2025 23:15
[2025-01-29] VITALS (7 sets, daily range): BP systolic 92–148; BP diastolic 53–90; PULSE 57–78; RESP 16–20; TEMP 97.6–98.8; O2SAT 94–98
--- NOTE | 2025-01-29 07:15 | ECG ---
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
--- NOTE | 2025-01-29 07:15 | ECG ---
[facility] Test Date: 2025-01-26 Test Time: 11:39:19 Pat Name: SILVANA MENDOZA Department: [facility] Room: 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
--- NOTE | 2025-01-29 07:15 | ECG ---
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
--- NOTE | 2025-01-29 16:55 | DVHPN2 ---
Progress Note - Dictate Date Seen: Jan 29, 2025 Medical Necessity Reason Pt with a Central, PICC or Fol: No Subjective Patient was seen and evaluated in follow up. Patient transitioned to room air. Denies any SOB. CM is working on recuperative care for recovery and to prevent reoccurring hospitalization. Telemetry reviewed. vital signs Vital Sign Date Time Temp Pulse Resp B/P (MAP) Pulse Ox O2 Delivery O2 Flow Rate FiO2 01/29/25 13:00 98.5 72 20 121/78 (92) 96 98.5 01/29/25 08:00 Room Air* 0 21 Total Intake and Output 01/28/25 01/28/25 01/29/25 15:00 23:00 07:00 Intake Total 600 ml Balance 600 ml medications Current Medications Medications Dose Ordered Sig/Carlos Route Start Time Stop Time Status Last Admin Dose Admin Aspirin 81 mg DAILY PO 01/26/25 10:00 01/29/25 09:13 81 MG Atorvastatin Calcium 40 mg HS PO 01/25/25 22:00 01/28/25 21:52 40 MG Morphine Sulfate 2 mg Q30MP PRN IV 01/25/25 16:00 Cancel Acetaminophen 650 mg Q6HP PRN PO 01/25/25 16:00 01/29/25 14:57 650 MG Nitroglycerin 0.4 mg Q5MINP PRN SL 01/25/25 16:00 Ondansetron HCl 4 mg Q4HP PRN IV 01/25/25 16:00 01/29/25 14:57 4 MG Nitroglycerin 0.4 mg Q5MINP PRN SL 01/25/25 16:00 UNV Morphine Sulfate 2 mg Q30M PRN IV 01/25/25 16:00 01/27/25 10:58 2 MG Diagnostic Test (Pha) 1 strip ACHS 01/25/25 17:00 01/29/25 11:37 1 STRIP Insulin Human Regular ACHS SC 01/25/25 17:00 01/29/25 11:30 4 UNITS Dextrose 50 ml UD PRN IV 01/25/25 16:00 Ascorbic Acid 500 mg DAILY PO 01/26/25 10:00 01/29/25 09:12 500 MG Clopidogrel Bisulfate 75 mg DAILY PO 01/26/25 10:00 01/29/25 09:12 75 MG Famotidine 20 mg BID PO 01/25/25 22:00 01/29/25 09:13 20 MG Gabapentin 100 mg TID PO 01/25/25 22:00 01/29/25 12:14 100 MG Gemfibrozil 600 mg BID PO 01/25/25 22:00 01/29/25 09:11 600 MG Isosorbide Mononitrate 20 mg BID PO 01/25/25 22:00 01/29/25 09:11 20 MG Lisinopril 10 mg DAILY PO 01/26/25 10:00 01/29/25 09:13 10 MG Metoprolol Tartrate 25 mg BID PO 01/25/25 22:00 01/29/25 09:13 25 MG Minoxidil 1.25 mg DAILY PO 01/26/25 10:00 01/29/25 09:14 1.25 MG Ursodiol 300 mg BID PO 01/25/25 22:00 01/29/25 12:14 300 MG Patient Own Medication 1 cap DAILY PO 01/26/25 10:00 Patient Own Medication 1 tab DAILY PO 01/26/25 10:00 Patient Own Medication 325 mg DAILY PO 01/26/25 10:00 Patient Own Medication 17 gm DAILY PO 01/26/25 10:00 UNV Patient Own Medication 50 mg HS PO 01/25/25 22:00 UNV Albuterol 2.5 mg Q4HPRN PRN NEB 01/25/25 16:15 01/28/25 20:07 2.5 MG Ipratropium Eure 0.5 mg Q4HPRN PRN NEB 01/25/25 16:15 01/28/25 20:07 0.5 MG Trazodone HCl 50 mg HS PO 01/25/25 22:00 01/28/25 21:51 50 MG Polyethylene Glycol 17 gm DAILY PO 01/26/25 10:00 01/29/25 09:10 17 GM Oxycodone/ Acetaminophen 1 tab Q6HP PRN PO 01/27/25 04:30 01/29/25 09:14 1 TAB objective GENERAL: Alert and oriented x 3. No acute distress. Morbidly obese. EYES: PERRL, EOMI. Anicteric. HENT: Moist mucous membranes. LUNGS: Clear to auscultation bilaterally. CARDIOVASCULAR: Regular rate and rhythm. ABDOMEN: Soft, nontender and nondistended. EXTREMITIES: No edema. NEUROLOGIC: No focal neurological deficits. SKIN: Warm, dry. laboratory and microbiology Laboratory Tests 01/26/25 05:20 Test 01/26/25 05:20 Range/Units Serum Glucose 126 H 74-106 mg/dL Problem List Chest pain rule out progressive coronary artery disease. Severe coronary artery disease status post triple-vessel CABG (on Plavix and aspirin). Hypertension. Dyslipidemia. Type 2 diabetes mellitus. Morbid obesity. Assessment/Plan Continued all current supportive medical care. Aspirin, Lipitor, Metoprolol, Plavix. Lisinopril. Morphine and Oxycodone for pain management. Nitro SL. Additional plan as per the hospital course. Plan discussed with: Patient CEZAR FISHMAN MD Jan 29, 2025 16:55
--- NOTE | 2025-02-04 09:00 | DVHPN2 ---
Reviewed: Care Plan, H&P, Labs, Medications Changes from previous H/P or p: No Changes General: Per HPI Neurological: Weakness Cardiovascular: Chest Pain Respiratory: Shortness of breath Musculoskeletal: shoulder pain Objective Medications Current Medications Medications Dose Ordered Sig/Carlos Route Start Time Stop Time Status Last Admin Dose Admin Morphine Sulfate 2 mg Q30MP PRN IV 01/25/25 16:00 Cancel Nitroglycerin 0.4 mg Q5MINP PRN SL 01/25/25 16:00 UNV Patient Own Medication 17 gm DAILY PO 01/26/25 10:00 UNV Patient Own Medication 50 mg HS PO 01/25/25 22:00 UNV Laboratory Results Laboratory Tests 01/26/25 05:20 Urinalysis Test 01/25/25 00:00 Urine Color Light-yellow (Yellow) Urine Clarity Clear (Clear) Urine pH 5.5 (5.0-9.0) Urine Specific [place] 1.024 (1.001-1.035) Urine Protein Negative (Negative) Urine Ketones Negative (Negative) Urine Blood Negative /uL (Negative) Urine Nitrite Negative (Negative) Urine Bilirubin Negative (Negative) Urine Urobilinogen Normal mg/dL (Negative) Urine Leukocyte Esterase Negative /uL (Negative) Urine RBC 3 /hpf (0 - 3) Urine Microscopic WBC < 1 /HPF (0-3) Urine Squamous Epithelial Cells Few /hpf (<5) Urine Bacteria None seen /hpf (None Seen) Urine Glucose 4+ mg/dL (Normal) H Assessment/Plan Assessment/Plan Thomas Reza is a 54-year-old male with past medical history of hypertension, hyperlipidemia, diabetes, anxiety, obesity, depression, and CABG who presents to the ED with chest pain and tightness that radiates to his left shoulder with shortness of breath x 3 days. Patient reports that the pain is 9/10 stabbing like and intermittent in nature. He states that there are no triggering or alleviating factors. Patient reports that he was packing his belongings at the time and resides at a board and care. He also reports that he ambulates with a front wheel walker. Patient denies any recent sick contacts, recent trauma or injury, recent travels, recent ingestion of spoiled food, lightheadedness, dizziness, weakness, urinary symptoms, abdominal pain, nausea, vomiting, diarrhea, fever, or chills. Chest pain rule out progressive coronary artery disease. Severe coronary artery disease status post triple-vessel CABG (on Plavix and aspirin). Hypertension. Dyslipidemia. Type 2 diabetes mellitus. Morbid obesity. Plan discussed with: Patient Date of Service: Jan 26, 2025 Billing Provider: ELLIS LITTLE DO Common Visit Codes: [id number] INP/OBS CARE(HIGH) ELLIS LITTLE DO Feb 04, 2025 08:59
== END 2025-01-29 18:00 | disposition home or self-care (01) | DRG 198 ==
LOC: ER 13:13 → EDBD 13:13 → OVERFLOW 15:50 → TELE-EAST 22:25
PROVIDERS: ADMIT Internal Medicine; ATTEND Internal Medicine
DX: I25.119 Atherosclerotic heart disease of native coronary artery with unspecified angina pectoris (principal); N17.9 Acute kidney failure, unspecified; J12.9 Viral pneumonia, unspecified; E11.9 Type 2 diabetes mellitus without complications; E66.01 Morbid (severe) obesity due to excess calories; F41.9 Anxiety disorder, unspecified; E78.5 Hyperlipidemia, unspecified; Z68.39 Body mass index [BMI] 39.0-39.9, adult; F32.A Depression, unspecified; I10 Essential (primary) hypertension; Z91.010 Allergy to peanuts; Z95.1 Presence of aortocoronary bypass graft; Z91.048 Other nonmedicinal substance allergy status; Z79.4 Long term (current) use of insulin; Z79.899 Other long term (current) drug therapy; Z79.84 Long term (current) use of oral hypoglycemic drugs
CPT/HCPCS: 36415; 71045; 80048; 80053; 80061; 80307; 81001; 82962; 83036; 83735; 83880; 84439; 84443; 84484; 85025; 93005; 93306; 94640; 96361; 96374; G0378; J1815; J2405